=== PATIENT | female | born 1935 | race Caucasian/White ===

== ENCOUNTER 2024-06-28 16:53 | Inpatient (IN) | payer OTHER ==
[2024-06-28] MEDS ORDERED: HYDRALAZINE HCL 20 MG/ML VIAL IV PRN (17:35)
--- NOTE | 2024-06-28 17:54 | P.HP ---
Certification for Inpatient Patient admitted to: Inpatient With expected LOS: >2 Midnights Patient will require the following post-hospital care: Rehabilitation Practitioner: I am a practitioner with admitting privileges, knowledge of patient current condition, hospital course, and medical plan of care. Services: Services provided to patient in accordance with Admission requirements found in Title 42 Section 412.3 of the Code of Federal Regulations Patient History Date of Service: 06/28/24 Primary Care Provider: Vannesa Reason for admission: Acute on chronic CHF History of Present Illness: Patient is a new patient to me. She was being admitted to [facility] assisted living facility. The patient was living in [facility]. She was living in [place] and had no health care other than the local ER. She was admitted to the ER for Pneumonia. She was kept for 2 night. Started on Augmentin and then Amoxicillin. The patient was discharged on 06/19. Her POA was getting her into [facility] and the staff called me stating she is too weak to be managed in [facility]. On history and evaluation. She has chronic lower extremity elephanti tis. She has been sleeping in a [place] for years. She also had a glucose of 276 in the [place] ER. The labs were shown to me by her POA. The patient has no history of chf, dm2. She was put on bp meds in the ER. However she most likely was never followed for the last 2 years. The patient walks about 10-15 feet at a time before her hospitalization. She has weakness and sob after words. She moved from [place] 17 years ago with the passing of her . States she wants to pass and be with her . She has a daughter with health issues living next door. Allergies No Known Allergies Allergy (Unverified 06/28/24 17:47) Home Medications: Amlodipine [Norvasc*] 1 tab PO BID 07/03/18 Losartan/Hydrochlorothiazide [Losartan-Hctz 100-12.5 mg Tab] 1 tab PO DAILY 07/03/18 - Past Medical/Surgical History Diabetic: No -: kidney stones - Social History Alcohol use: No Review of Systems 10-point ROS is otherwise unremarkable Respiratory: Shortness of Breath Cardiovascular: Edema (chronic elephantitis) Physical Examination - Physical Exam General: Alert, In no apparent distress HEENT: Atraumatic, PERRLA, Mucous membr. moist/pink, EOMI, Sclerae nonicteric Neck: Supple, 2+ carotid pulse no bruit, No LAD, Without JVD or thyroid abnormality Respiratory: Clear to auscultation bilaterally, Normal air movement Cardiovascular: Regular rate/rhythm, Normal S1 S2, Abnormal pulses (bounding apical heart beat), Gallops Gastrointestinal: Normal bowel sounds, No tenderness Musculoskeletal: No tenderness Integumentary: No rashes, Other (elephantitis, unkempt nails ) Neurological: Normal gait, Normal speech, Normal strength at 5/5 x4 extr, Normal tone, Normal affect Lymphatics: No axilla or inguinal lymphadenopathy Assessment and Plan - Problems (Diagnosis) (1) Heart failure, unspecified Current Visit: Yes Status: Acute Plan: Patient most likely has hear failure for quite some time. Judging for the elephantitis. will Consult Dr. Clifton. Start her on lasix, metoprolol and entresto. Will order an echocardiogram. See which other evaluation Dr. Clifton would want. Qualifiers: Heart failure type: unspecified Heart failure chronicity: acute on chronic Qualified Code(s): I50.9 - Heart failure, unspecified (2) Essential (primary) hypertension Current Visit: Yes Status: Chronic Plan: she has been on amlodipine and lisinopril in the past it seems. will hold this for the entresto and metoprolol (3) Type 2 diabetes mellitus without complications Current Visit: Yes Status: Chronic Plan: Undiagnoised. Will start her on a sliding scale. order an a1c. Patient seem to have a sweet tooth per her POA. Qualifiers: Diabetes mellitus longwall headgate operator insulin use: without longwall headgate operator use Qualified Code(s): E11.9 - Type 2 diabetes mellitus without complications (4) Lymphedema of both lower extremities Current Visit: No Status: Chronic Plan: Will order vascular studies. consult to Dr. Ballesteros. Have spoken with him. Nothing emergent to be done. However her nails and a chronic well healed ulcer should be evaluated.. Discharge Plan: LTAC Plan to discharge in: Greater than 2 days - Advance Directives Does patient have a Living Will: No Does patient have a Durable POA for Healthcare: No - Code Status/Comfort Care Code Status Assessed: Yes Code Status: Do Not Attempt Resuscitat Physician Review: Patient Assessed, Agree with Above Assessment and Plan Critical Care: No Time Spent Managing Pts Care (In Minutes): 90
--- NOTE | 2024-06-28 19:08 | RAD REPORT ---
Procedure: Chest Single View HISTORY: Shortness of breath COMPARISON: none FINDINGS: Mild bilateral interstitial lung opacities There may be small bilateral pleural effusions Heart is mildly enlarged. Scoliosis. Aorta is tortuous/ectatic. IMPRESSION: These findings probably indicate mild CHF
[2024-06-28 19:26] LABS: Absolute Basophils 0.1 K/uL (0-0.5); Absolute Eosinophils 0.1 K/uL (0-0.5); Absolute Lymphocytes (CBC) 1.5 K/uL (0.7-4.9); Absolute Monocytes 1.4 K/uL (0.1-1.3); Absolute Neutrophil 14.9 K/uL (1.8-8.0); Basophils % 0.6 % (0-1.3); Eosinophils % 0.7 % (0-4.4); Hematocrit 44.1 % (36.0-45.0); Hemoglobin 14.2 g/dL (12.0-15.0); Lymphocytes % 8.1 % (15.3-44.8); MCH 26.9 pg (27.0-35.0); MCHC 32.1 g/dL (32.0-36.0); MCV 83.8 fL (80-100); MPV 7.8 fL (7.6-11.3); Monocytes % 7.9 % (3.3-12.3); Neutrophils % 82.7 % (41.7-73.7); Nucleated Red Blood Cells % 0.1 % (0-0); Platelets 424 thou/uL (152-406); RBC Red Blood Cell Count 5.26 M/uL (3.86-4.86); Red Cell Distribution Width 15.1 % (12.1-15.2)
[2024-06-28 19:39] LABS: AST/SGOT 14 U/L (15-37); Albumin 2.8 g/dL (3.4-5.0); Albumin/Globulin Ratio 0.8 (1.1-1.8); Alkaline Phosphatase 89 U/L (45-117); Anion Gap 9.7 mEq/L (5.0-15.0); BUN Blood Urea Nitrogen 14 mg/dL (7-18); Bicarbonate 30 mEq/L (21-32); Globulin 3.7 g/dL (2.3-3.5); Glomerular Filtration Rate 61 ml/min (=/>90); Glucose Level 105 mg/dL (74-106); NT PRO-BNP 211 pg/mL (<450); Potassium 3.7 mEq/L (3.5-5.1); Protein, Total 6.5 g/dL (6.4-8.2); Sodium Level 139 mEq/L (136-145)
[2024-06-28 19:50] LABS: ALT/SGPT < 14 U/L (13-56)
[2024-06-28] MEDS: METOPROLOL TAR 25 MG TAB PO SCH (20:52)
[2024-06-28] MEDS: FUROSEMIDE 40 MG/4 ML VIAL IV ONE (20:52)
[2024-06-28] MEDS: SACUBITRIL/VALSARTAN 24/26 MG TAB PO SCH (20:52)
[2024-06-28] MEDS: INSULIN REGULAR (HUMAN) 100 UNIT/ML SQ SCH (20:53)
--- NOTE | 2024-06-28 22:05 | RAD REPORT ---
EXAMINATION: US bilateral LOWER EXTREMITY VENOUS DOPPLER CLINICAL INDICATION: Leg pain. Chronic lymphedema TECHNIQUE: Sonographic evaluation of the veins of the lower extremity bilaterally formed.Grayscale, c olor and spectral analysis performed on all vessels COMPARISON: No prior exam. FINDINGS: The common femoral, superficial femoral, greater saphenous, popliteal and posterior tibial veins bila terally are compressible and demonstrate augmentation. Doppler demonstrates good flow. IMPRESSION: No evidence of deep venous thrombosis involving either lower extremity
--- NOTE | 2024-06-28 22:11 | RAD REPORT ---
EXAMINATION:Lower Extremity Arterial Bilat CLINICAL INDICATION: Leg pain. Chronic lymphedema. TECHNIQUE: Arterial duplex ultrasound was performed of the bilateral lower extremity arteries. With r eal-time, color-flow, and spectral wave Doppler evaluation..Grayscale, color and spectral analysis performed on all vessels COMPARISON: No prior exam. FINDINGS: Right common femoral, right superficial femoral, right popliteal, right posterior tibial and right do rsalis pedis arterial waveforms triphasic Left common femoral, left superficial femoral and left popliteal arterial waveforms triphasic. Left posterior tibial and left dorsalis pedis arterial waveforms moderate no and a biphasic. No high-grade stenosis/occlusion IMPRESSION: No significant abnormality arteries right lower extremity . No significant abnormality arteries proximal and mid left lower extremity. Mild disease involving the arteries distally left lower extremity
--- NOTE | 2024-06-28 22:14 | RAD REPORT ---
EXAMINATION:Upper Ext Artery Bilateral CLINICAL INDICATION: Arm pain. Chronic lymphedema TECHNIQUE: Arterial duplex ultrasound was performed of the bilateral upper extremity with real-time, color-flow, and spectral wave Doppler evaluation. COMPARISON: No prior exam. FINDINGS: Common carotid, subclavian, axillary, brachial, ulnar and radial arteries demonstrate phasic waveform s. No high-grade stenosis/occlusion seen IMPRESSION: No significant vascular abnormality displayed
[2024-06-29 01:42] LABS: MA/CREAT RATIO 68.4 (< 30.0); UR MICROALBUMIN 1.3 mg/dL (< 1.9)
[2024-06-29 05:50] LABS: Absolute Basophils 0.2 K/uL (0-0.5); Absolute Eosinophils 0.1 K/uL (0-0.5); Absolute Lymphocytes (CBC) 1.5 K/uL (0.7-4.9); Absolute Monocytes 1.6 K/uL (0.1-1.3); Absolute Neutrophil 13.6 K/uL (1.8-8.0); Basophils % 1.1 % (0-1.3); Eosinophils % 0.8 % (0-4.4); Hematocrit 38.8 % (36.0-45.0); Hemoglobin 12.8 g/dL (12.0-15.0); Lymphocytes % 8.6 % (15.3-44.8); MCH 27.3 pg (27.0-35.0); MPV 7.2 fL (7.6-11.3); Monocytes % 9.2 % (3.3-12.3); Neutrophils % 80.3 % (41.7-73.7); Nucleated Red Blood Cells % 0.1 % (0-0); Platelets 398 thou/uL (152-406); RBC Red Blood Cell Count 4.68 M/uL (3.86-4.86); Red Cell Distribution Width 14.9 % (12.1-15.2)
[2024-06-29 06:21] LABS: Albumin 2.4 g/dL (3.4-5.0); Albumin/Globulin Ratio 0.8 (1.1-1.8); Alkaline Phosphatase 75 U/L (45-117); Anion Gap 6.2 mEq/L (5.0-15.0); BUN Blood Urea Nitrogen 13 mg/dL (7-18); Bicarbonate 32 mEq/L (21-32); Bilirubin Total 0.8 mg/dL (0.2-1.0); Globulin 3.1 g/dL (2.3-3.5); Glomerular Filtration Rate 72 ml/min (=/>90); Glucose Level 103 mg/dL (74-106); Potassium 3.2 mEq/L (3.5-5.1); Protein, Total 5.5 g/dL (6.4-8.2); Sodium Level 140 mEq/L (136-145)
[2024-06-29 06:42] LABS: ALT/SGPT < 14 U/L (13-56); AST/SGOT < 10 U/L (15-37)
[2024-06-29] MEDS: PANTOPRAZOLE 40MG TABLET PO SCH (07:30)
[2024-06-29] MEDS: POTASSIUM 25 MEQ EFFERV TAB PO ONE (08:46)
--- NOTE | 2024-06-29 12:04 | P.PN ---
Subjective Date of Service: 06/29/24 Primary Care Provider: Vannesa Chief Complaint: Acute on chronic CHF Subjective: Improving Review of Systems 10-point ROS is otherwise unremarkable Cardiovascular: Edema Physical Examination - Vital Signs Temperature: 98.6 F Blood Pressure: 117/57 Pulse: 86 Respirations: 14 Pulse Ox (%): 97 - Physical Exam General: Alert, In no apparent distress HEENT: Atraumatic, PERRLA, EOMI Neck: Supple, JVD not distended Respiratory: Clear to auscultation bilaterally, Normal air movement Cardiovascular: Regular rate/rhythm, Normal S1 S2, Edema (chronic lymphadema ) Gastrointestinal: Normal bowel sounds, No tenderness Musculoskeletal: No tenderness Integumentary: No rashes Neurological: Normal speech, Normal tone, Normal affect Lymphatics: No axilla or inguinal lymphadenopathy - Studies Laboratory Data (last 24 hrs) 06/29/24 06/29/24 06/29/24 05:29 05:29 05:29 WBC 16.90 H Hgb 12.8 D Hct 38.8 Plt Count 398 Sodium 140 Potassium 3.2 L D BUN 13 Creatinine 0.79 Glucose 103 Magnesium 2.0 Total Bilirubin 0.8 AST < 10 L ALT < 14 Alkaline Phosphatase 75 Triglycerides 130 Cholesterol 138 HDL Cholesterol 42 Cholesterol/HDL Ratio 3.29 06/28/24 06/28/24 18:40 18:40 WBC 18.00 H Hgb 14.2 Hct 44.1 Plt Count 424 H Sodium 139 Potassium 3.7 BUN 14 Creatinine 0.91 Glucose 105 Magnesium Total Bilirubin 1.0 AST 14 L ALT < 14 Alkaline Phosphatase 89 Triglycerides Cholesterol HDL Cholesterol Cholesterol/HDL Ratio Assessment And Plan - Current Problems (Diagnosis) (1) Heart failure, unspecified Current Visit: Yes Status: Acute Plan: Patient most likely has hear failure for quite some time. Judging for the marianne witt. will Consult Dr. Clifton. Start her on lasix, metoprolol and entresto. Will order an echocardiogram. See which other evaluation Dr. Clifton would want. 06/29 Has better bp this morning. The patient had bradycardia. d/c the metoprolol. will await Dr Clifton Qualifiers: Heart failure type: unspecified Heart failure chronicity: acute on chronic Qualified Code(s): I50.9 - Heart failure, unspecified (2) Essential (primary) hypertension Current Visit: Yes Status: Chronic Plan: she has been on amlodipine and lisinopril in the past it seems. will hold this for the entresto and metoprolol (3) Type 2 diabetes mellitus without complications Current Visit: Yes Status: Ruled-out Plan: Undiagnoised. Will start her on a sliding scale. order an a1c. Patient seem to have a sweet tooth per her POA. 12/7 a1c is 5.8. previous glucose of 276 was most likely an acute phase reaction. This was in her [place] stay with pneumonia. Qualifiers: Diabetes mellitus oysterman insulin use: without group home use Qualified Code(s): E11.9 - Type 2 diabetes mellitus without complications (4) Lymphedema of both lower extremities Current Visit: No Status: Chronic Plan: Will order vascular studies. consult to Dr. Ballesteros. Have spoken with him. Nothing emergent to be done. However her nails and a chronic well healed ulcer should be evaluated.. Discharge Plan: LTAC Plan to discharge in: Greater than 2 days - Code Status/Comfort Care Code Status Assessed: No Physician Review: Patient Assessed, Agree with Above Assessment and Plan Critical Care: No Time Spent Managing PTS Care (In Minutes): 40
[2024-06-29 16:58] VITALS: BMI 27.2
[2024-06-29] MEDS: ENOXAPARIN 30 MG/0.3 ML SQ SCH (17:03)
[2024-06-29] MEDS: Mupirocin NASAL 2 APPL/1 GM TUBE NAS SCH (21:55)
[2024-06-30 06:30] LABS: Absolute Eosinophils 0.2 K/uL (0-0.5); Absolute Lymphocytes (CBC) 1.3 K/uL (0.7-4.9); Absolute Monocytes 1.2 K/uL (0.1-1.3); Absolute Neutrophil 12.3 K/uL (1.8-8.0); Basophils % 0.3 % (0-1.3); Eosinophils % 1.2 % (0-4.4); Hematocrit 39.9 % (36.0-45.0); Hemoglobin 12.9 g/dL (12.0-15.0); MCHC 32.4 g/dL (32.0-36.0); MCV 83.4 fL (80-100); MPV 7.1 fL (7.6-11.3); Monocytes % 7.7 % (3.3-12.3); Neutrophils % 81.8 % (41.7-73.7); Platelets 388 thou/uL (152-406); RBC Red Blood Cell Count 4.79 M/uL (3.86-4.86); Red Cell Distribution Width 15.3 % (12.1-15.2)
[2024-06-30 06:50] LABS: Albumin 2.6 g/dL (3.4-5.0); Albumin/Globulin Ratio 0.8 (1.1-1.8); Alkaline Phosphatase 84 U/L (45-117); Anion Gap 5.4 mEq/L (5.0-15.0); BUN Blood Urea Nitrogen 18 mg/dL (7-18); Bicarbonate 33 mEq/L (21-32); Bilirubin Total 0.5 mg/dL (0.2-1.0); Globulin 3.3 g/dL (2.3-3.5); Glomerular Filtration Rate 59 ml/min (=/>90); Glucose Level 117 mg/dL (74-106); Potassium 3.4 mEq/L (3.5-5.1); Protein, Total 5.9 g/dL (6.4-8.2); Sodium Level 141 mEq/L (136-145)
[2024-06-30 06:51] LABS: ALT/SGPT < 14 U/L (13-56); AST/SGOT < 10 U/L (15-37)
[2024-06-30 07:49] LABS: Atypical Lymphocytes 2 %; Band Neutrophils 2 % (0-1); Differential Total Cells Count 100; Lymphocytes 8 % (15-42); Monocytes 5 % (0-10); Segmented Neutrophils 82 % (40-80)
[2024-06-30 07:50] LABS: Blood Morphology Comment NOT SEEN (NOT SEEN); Platelet Estimate ADEQ; Platelets, Giant NOTED; Smudge Cells NOTED
--- NOTE | 2024-06-30 13:16 | P.PN ---
Subjective Date of Service: 06/30/24 Primary Care Provider: Vannesa Chief Complaint: Acute on chronic CHF Subjective: No new changes Review of Systems 10-point ROS is otherwise unremarkable General: Weakness (has tried putting one foot on the floor) Physical Examination - Vital Signs Temperature: 98.5 F Blood Pressure: 140/61 Pulse: 72 Respirations: 16 Pulse Ox (%): 97 - Physical Exam General: Alert, In no apparent distress HEENT: Atraumatic, PERRLA, EOMI Neck: Supple, JVD not distended Respiratory: Clear to auscultation bilaterally, Normal air movement Cardiovascular: Regular rate/rhythm, Normal S1 S2 Gastrointestinal: Normal bowel sounds, No tenderness Musculoskeletal: No tenderness Integumentary: No rashes Neurological: Normal speech, Normal tone, Normal affect Lymphatics: No axilla or inguinal lymphadenopathy - Studies Laboratory Data (last 24 hrs) 06/30/24 06/30/24 06/30/24 06:20 06:20 05:00 WBC 15.00 H Hgb 12.9 Hct 39.9 Plt Count 388 Sodium 141 Cancelled Potassium 3.4 L D Cancelled BUN 18 Cancelled Creatinine 0.94 Cancelled Glucose 117 H Cancelled Total Bilirubin 0.5 AST < 10 L ALT < 14 Alkaline Phosphatase 84 06/29/24 19:20 WBC Hgb Hct Plt Count Sodium Potassium 4.0 D BUN Creatinine Glucose Total Bilirubin AST ALT Alkaline Phosphatase Assessment And Plan - Current Problems (Diagnosis) (1) Heart failure, unspecified Current Visit: Yes Status: Acute Plan: Patient most likely has hear failure for quite some time. Judging for the elephantitis. will Consult Dr. Clifton. Start her on lasix, metoprolol and entresto. Will order an echocardiogram. See which other evaluation Dr. Clifton would want. 06/29 Has better bp this morning. The patient had bradycardia. d/c the metoprolol. will await Dr Clifton Qualifiers: Heart failure type: unspecified Heart failure chronicity: acute on chronic Qualified Code(s): I50.9 - Heart failure, unspecified (2) Essential (primary) hypertension Current Visit: Yes Status: Chronic Plan: she has been on amlodipine and lisinopril in the past it seems. will hold this for the entresto and metoprolol (3) Type 2 diabetes mellitus without complications Current Visit: Yes Status: Ruled-out Plan: Undiagnoised. Will start her on a sliding scale. order an a1c. Patient seem to have a sweet tooth per her POA. 12 a1c is 5.8. previous glucose of 276 was most likely an acute phase reaction. This was in her [place] stay with pneumonia. Qualifiers: Diabetes mellitus fpc insulin use: without exterminator helper use Qualified Code(s): E11.9 - Type 2 diabetes mellitus without complications (4) Lymphedema of both lower extremities Current Visit: No Status: Chronic Plan: Will order vascular studies. consult to Dr. Ballesteros. Have spoken with him. Nothing emergent to be done. However her nails and a chronic well healed ulcer should be evaluated.. Discharge Plan: LTAC Plan to discharge in: 48 Hours - Code Status/Comfort Care Code Status Assessed: No Physician Review: Patient Assessed, Agree with Above Assessment and Plan Critical Care: No Time Spent Managing PTS Care (In Minutes): 20
[2024-06-30] MEDS: POTASSIUM CL SA 10 MEQ TAB PO ONE (21:11)
[2024-07-01 04:43] LABS: Absolute Eosinophils 0.2 K/uL (0-0.5); Absolute Lymphocytes (CBC) 1.2 K/uL (0.7-4.9); Absolute Neutrophil 10.7 K/uL (1.8-8.0); Basophils % 0.3 % (0-1.3); Eosinophils % 1.9 % (0-4.4); Hematocrit 38.8 % (36.0-45.0); Hemoglobin 12.5 g/dL (12.0-15.0); Lymphocytes % 9.1 % (15.3-44.8); MCH 27.1 pg (27.0-35.0); MCHC 32.3 g/dL (32.0-36.0); MCV 83.8 fL (80-100); MPV 7.4 fL (7.6-11.3); Monocytes % 7.6 % (3.3-12.3); Neutrophils % 81.1 % (41.7-73.7); Platelets 350 thou/uL (152-406); RBC Red Blood Cell Count 4.63 M/uL (3.86-4.86); Red Cell Distribution Width 15.5 % (12.1-15.2)
[2024-07-01 04:58] LABS: Albumin 2.3 g/dL (3.4-5.0); Albumin/Globulin Ratio 0.7 (1.1-1.8); Alkaline Phosphatase 74 U/L (45-117); Anion Gap 5.3 mEq/L (5.0-15.0); BUN Blood Urea Nitrogen 17 mg/dL (7-18); Bicarbonate 32 mEq/L (21-32); Bilirubin Total 0.5 mg/dL (0.2-1.0); Globulin 3.2 g/dL (2.3-3.5); Glomerular Filtration Rate 69 ml/min (=/>90); Glucose Level 132 mg/dL (74-106); Potassium 4.3 mEq/L (3.5-5.1); Protein, Total 5.5 g/dL (6.4-8.2); Sodium Level 142 mEq/L (136-145)
[2024-07-01 05:01] LABS: ALT/SGPT < 14 U/L (13-56); AST/SGOT < 10 U/L (15-37)
--- OUTSIDE RECORDS SUMMARY | 2024-07-01 08:19 | XMS REPORT | Continuity of Care Document ---
Author Name Unknown Address [address] [place] [address] [facility] thconnect Address [address] [place] [address] Care Team Providers Care Medical Coordinator Pesticide Use Name Role Phone DANIELLE FREGOSO Primary Care Physician UnavailDANIELLE Flores Attending Clinician Unavailable Antonino NUÑEZ, Danielle Attending Clinician [phone] Yeimi Millan RN Attending Clinician Unava ilable Doctor Unassigned, [place] Attending Clinician U Daniel Cho DO Attending Clinician [phone] Dre Crespo MD Attending Clinician [phone] Taran NUÑEZ, Zulema Maciel Attending Clinician + [phone] James Avila MD Attending Clinician [phone] Wander Spears MD Attending Clinician [phone] Taran NUÑEZ, Zulema Maciel Admitting Clinician [phone] Payers Payer Name Policy Type Policy Number Effective Date Expirati on Date Source [employer] MED[employer]ARE ADV HMO [id number] 2016 00:00:00 Problems Condition Name Condition Details Condition Category Status Onset Date Resolution Date Last Treatment Date Treating Clinician Comments Source Syncope and collapse Syncope and collapse Disease Active 2-10 00:00: 00 [facility] Mobility impaired Mobility impaired Disease Active 2018-07 0-09 00:00: 00 [facility] Essential hypertensi on Essential hypertensi on Disease Active 2014-07 00:00: 00 [facility] 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 Disease Active 2014-07 00:00: 00 [facility] Allergies, Adverse Reactions, Alerts Allergy Name Allergy Type Status Severity Reaction(s) Onset Date Inactive Date Treating Clinician Comments Source AMOXICIL TERRANCE-POT CLAVULAN ATE DRUG Active Unknown-Cmnt 2014-07 00:00: 00 [facility] HYDROCOD ONE-GUAI FENESIN DRUG Active Unknown-Cmnt 2014-07 00:00: 00 [facility] Amoxicil terrance-Pot Clavulan ate Propensi ty to adverse reaction s Active Unknown - See comments 2014-07 00:00: 00 [facility] Hydrocod one-Guai fenesin Propensi ty to adverse reaction s Active Unknown - See comments 2014-07 00:00: 00 [facility] Social History Social Habit Start Date Stop Date Quantity Comments Source Exposure to SARS-CoV-2 (event) Not sure [facility] Alcohol intake 2020-09-03 00:00:00 2020-09-03 00:00:00 Current non-drinker of alcohol (finding) [facility] Sex Assigned At 1935 00:00:00 1935 00:00:00 [facility] Smoking Status Start Date Stop Date Source Never smoker [facility] Medications Ordered Medication Name Filled Medication Name Start Date Stop Date Current Medication? Ordering Clinician Indication Dosage Frequency Signature (SIG) Comments Components Source losartan 100 mg tablet 2019-07 00:00: 00 07-14 00:00 :00 No 100mg Take 100 mg by mouth daily. [facility] amLODIPine 5 mg tablet 2019-07 00:00: 00 07-14 00:00 :00 No 5mg Take 5 mg by mouth 2 (two) times daily. [facility] azelastine 137 mcg (0.1 %) nasal spray 2018-07 00:00: 00 Yes [id number] 1{spray } Use 1 [place] in each nostril 2 (two) times daily. Use in each nostril as directed [facility] fluticasone propion-ruth ann meterol (ADVAIR DISKUS) 250-50 mcg/dose inhalation disk 2018-07 00:00: 00 Yes [id number] 1{puff} Inhale 1 Puff every 12 (twelve) hours. [facility] Vital Signs Vital Name Observation Time Observation Value Comments [facility] Systolic blood pressure 2021-07-14 18:22:00 137 mm[Hg] [facility] Diastolic blood pressure 2021-07-14 18:22:00 82 mm[Hg] [facility] Heart rate 2021-07-14 18:13:00 109 /min [facility] Body weight 2021-07-14 18:13:00 82.101 kg [facility] BMI 2021-07-14 18:13:00 27.52 kg/m2 [facility] Oxygen saturation in Arterial blood by Pulse oximetry 2021-07-14 18:13:00 95 /min [facility] Encounters Start Date/Time End Date/Time Encounter Type Admission Type Attending Clinicians Care Facility Care Department Encounter ID Source 2021-05-22 22:57:15 Emergency [facility] [id number] [facility] 2021-07-14 12:30:00 2021-07-14 12:45:00 Office Visit Danielle Fregoso [facility] [id number] [facility] 2021-07-14 12:30:00 2021-07-14 12:30:00 Outpatient DANIELLE RBEWER [facility] [id number] [facility] 2021-07-14 12:30:00 2021-07-14 12:30:00 Outpatient DANIELLE BREWER [facility] [id number] [facility] 2021-07-12 10:40:00 2021-07-12 10:40:00 Outpatient R [facility] [id number] [facility] 2021-07-09 00:00:00 2021-07-09 00:00:00 [facility] [id number] [facility] 2021-05-19 00:00:00 2021-05-19 00:00:00 Telephone YanaYeimi [facility] 1..114 [id number] [facility] 2020-09-17 00:00:00 2020-09-17 00:00:00 Orders Only Doctor Unassigned, [place] [facility] 1..114 [id number] [facility] 2020-09-15 08:25:30 2020-09-15 08:56:22 [facility] 1..114 [id number] [facility] 2020-09-15 08:30:00 2020-09-15 08:30:00 Outpatient R FREGOSODANIELLE [facility] [id number] [facility] 2020-09-02 18:20:00 2020-09-04 21:43:00 Hospital Encounter Daniel Conklin, Dre Chirinos, Zulema Avila, [facility].114 [id number] [facility] 2020-04-07 07:45:00 2020-04-07 07:45:00 Outpatient R DANIELLE FREGOSO [facility] [id number] [facility] 2020-04-07 06:49:01 2020-04-07 07:04:01 Telemedici ne Visit Danielle Fregoso [facility] Office [facility] [id number] [facility]
[2024-07-01] MEDS: FUROSEMIDE 40 MG/4 ML VIAL IV SCH (09:42)
--- NOTE | 2024-07-01 12:43 | P.PN ---
Subjective Date of Service: 07/01/24 Primary Care Provider: Vannesa Chief Complaint: Acute on chronic CHF Subjective: No new changes Review of Systems 10-point ROS is otherwise unremarkable General: Weakness (Patient is able to move her feet much better today) Physical Examination - Vital Signs Temperature: 98.6 F Blood Pressure: 142/67 Pulse: 100 Respirations: 16 Pulse Ox (%): 98 - Physical Exam General: Alert, In no apparent distress HEENT: Atraumatic, PERRLA, EOMI Neck: Supple, JVD not distended Respiratory: Clear to auscultation bilaterally, Normal air movement Cardiovascular: Regular rate/rhythm, Normal S1 S2, Edema (1+ improved) Gastrointestinal: Normal bowel sounds, No tenderness Musculoskeletal: No tenderness Integumentary: No rashes Neurological: Normal speech, Normal tone, Normal affect Lymphatics: No axilla or inguinal lymphadenopathy - Studies Laboratory Data (last 24 hrs) 07/01/24 07/01/24 06/30/24 04:20 04:20 19:45 WBC 13.10 H Hgb 12.5 Hct 38.8 Plt Count 350 Sodium 142 Potassium 4.3 D 3.7 BUN 17 Creatinine 0.82 Glucose 132 H Total Bilirubin 0.5 AST < 10 L ALT < 14 Alkaline Phosphatase 74 Assessment And Plan - Current Problems (Diagnosis) (1) Heart failure, unspecified Current Visit: Yes Status: Acute Plan: Patient most likely has hear failure for quite some time. Judging for the elephantitis. will Consult Dr. Clifton. Start her on lasix, metoprolol and entresto. Will order an echocardiogram. See which other evaluation Dr. Clifton would want. 07/01 had an echo this morning. Discussed the patient with Dr. Hansen Qualifiers: Heart failure type: unspecified Heart failure chronicity: acute on chronic Qualified Code(s): I50.9 - Heart failure, unspecified (2) Essential (primary) hypertension Current Visit: Yes Status: Chronic Plan: she has been on amlodipine and lisinopril in the past it seems. will hold this for the entresto and metoprolol (3) Type 2 diabetes mellitus without complications Current Visit: Yes Status: Ruled-out Plan: Undiagnoised. Will start her on a sliding scale. order an a1c. Patient seem to have a sweet tooth per her POA. 06/29 a1c is 5.8. previous glucose of 276 was most likely an acute phase reaction. This was in her [place] stay with pneumonia. Qualifiers: Diabetes mellitus track coach insulin use: without track coach use Qualified Code(s): E11.9 - Type 2 diabetes mellitus without complications (4) Lymphedema of both lower extremities Current Visit: No Status: Chronic Plan: Will order vascular studies. consult to Dr. Ballesteros. Have spoken with him. Nothing emergent to be done. However her nails and a chronic well healed ulcer should be evaluated.. (5) Hyperglycemia Current Visit: Yes Status: Chronic Plan: not in diabetic range. May consider nutritional councilling Discharge Plan: LTAC Plan to discharge in: 24 Hours - Code Status/Comfort Care Code Status Assessed: No Physician Review: Patient Assessed, Agree with Above Assessment and Plan Critical Care: No Time Spent Managing PTS Care (In Minutes): 20
--- NOTE | 2024-07-01 14:13 | P.CNS ---
Date of Consult: 07/01/24 Primary Care Provider: Vannesa Chief Complaint: Acute on chronic CHF History of Present Illness: Patient was admitted to the hospital for SOB and significant bilateral lower extremities swelling, denies chest pain, no palpitations, no syncope. Allergies No Known Allergies Allergy (Unverified 06/28/24 17:47) Home medications list reviewed: Yes Home Medications: Amlodipine [Norvasc*] 1 tab PO BID 07/03/18 Losartan/Hydrochlorothiazide [Losartan-Hctz 100-12.5 mg Tab] 1 tab PO DAILY 07/03/18 - Past Medical/Surgical History Diabetic: No -: HTN -: DM -: CHF -: kidney stones - Social History Alcohol use: No CD- Drugs: No Caffeine use: No Place of Residence: Home Review of Systems 10-point ROS is otherwise unremarkable Physical Examination Temp Pulse Resp BP Pulse Ox 98.6 F 100 H 16 142/67 H 98 07/01/24 12:43 07/01/24 12:43 07/01/24 12:43 07/01/24 12:43 07/01/24 12:43 General: Alert, In no apparent distress HEENT: Atraumatic, PERRLA, Mucous membr. moist/pink, EOMI, Sclerae nonicteric Neck: Supple, 2+ carotid pulse no bruit, No LAD, Without JVD or thyroid abnormality Respiratory: Clear to auscultation bilaterally, Normal air movement Cardiovascular: Regular rate/rhythm, Normal S1 S2, Edema Gastrointestinal: Normal bowel sounds, No tenderness Musculoskeletal: No tenderness Integumentary: No rashes Neurological: Normal gait, Normal speech, Normal tone, Normal affect Lymphatics: No axilla or inguinal lymphadenopathy Laboratory Data (last 24 hrs) 07/01/24 07/01/24 06/30/24 04:20 04:20 19:45 WBC 13.10 H Hgb 12.5 Hct 38.8 Plt Count 350 Sodium 142 Potassium 4.3 D 3.7 BUN 17 Creatinine 0.82 Glucose 132 H Total Bilirubin 0.5 AST < 10 L ALT < 14 Alkaline Phosphatase 74 - Problems (1) Heart failure, unspecified Current Visit: Yes Status: Acute Plan: continue IV lasix 40 mg daily continue to monitor input and output consider adding Spironlactone 25 mg daily consider starting Coreg 3.125 mg po BID. will follow up on echo. Qualifiers: Heart failure type: unspecified Heart failure chronicity: acute on chronic Qualified Code(s): I50.9 - Heart failure, unspecified
--- NOTE | 2024-07-01 14:44 | ECHO ---
HEIGHT: 5 ft 8 in WEIGHT: 179 lb 0 oz DATE OF STUDY: 07/01/[address]: Romie Granado MD 2-DIMENSIONAL: YES M.MODE: YES DOPPLER: YES COLOR FLOW: YES TDS: YES PORTABLE: YES DEFINITY: NO BUBBLE STUDY: NO DIAGNOSIS: CONGESTIVE HEART FAILURE CARDIAC HISTORY: CATHERIZATION: SURGERY: PROSTHETIC VALVE: PACEMAKER: MEASUREMENTS (cm) DIASTOLIC (NORMALS) SYSTOLIC (NORMALS) IVSd 1.0 (0.6-1.2) LA Diam 3.9 (1.9-4.0) LVEF 65% LVIDd 3.3 (3.5-5.7) LVIDs 1.9 (2.0-3.5) %FS 43% LVPWd 1.1 (0.6-1.2) Ao Diam 2.6 (2.0-3.7) 2 DIMENSIONAL ASSESSMENT: RIGHT ATRIUM: NORMAL LEFT ATRIUM: MILDLY DILATED RIGHT VENTRICLE: NORMAL LEFT VENTRICLE: NORMAL TRICUSPID VALVE: TRACE OF TRICUSPID REGURGITATION MITRAL VALVE: NORMAL PULMONIC VALVE: NORMAL AORTIC VALVE: NORMAL PERICARDIAL EFFUSION: NONE AORTIC ROOT: NORMAL LEFT VENTRICULAR WALL MOTION: NORMAL. DOPPLER/COLOR FLOW: GRADE I DIASTOLIC DYSFUNCTION. COMMENTS: 1. NORMAL LEFT VENTRICULAR SYSTOLIC FUNCTION, EJECTION FRACTION 65%, NORMAL WALL MOTION. 2. GRADE IF DIASTOLIC DYSFUNCTION. 3. NORMAL FILLING PRESSURE. TECHNOLOGIST: COLBY GAONA
[2024-07-01] MEDS: ENOXAPARIN 40 MG/0.4 ML SQ SCH (17:40)
--- NOTE | 2024-07-02 09:29 | P.PN ---
Subjective Date of Service: 07/02/24 Primary Care Provider: Vannesa Chief Complaint: Acute on chronic CHF Subjective: Improving (walked 40 feet with physical therapy yesterday) Review of Systems 10-point ROS is otherwise unremarkable General: Other (anxiety per Physical therapist ) Physical Examination - Vital Signs Temperature: 97.6 F Blood Pressure: 120/57 Pulse: 69 Respirations: 18 Pulse Ox (%): 94 - Physical Exam General: Alert, In no apparent distress HEENT: Atraumatic, PERRLA, EOMI Neck: Supple, JVD not distended Respiratory: Clear to auscultation bilaterally, Normal air movement Cardiovascular: Regular rate/rhythm, Normal S1 S2 Gastrointestinal: Normal bowel sounds, No tenderness Musculoskeletal: No tenderness Integumentary: No rashes Neurological: Normal speech, Normal tone, Normal affect Lymphatics: No axilla or inguinal lymphadenopathy, Other (elephantitis) Assessment And Plan - Current Problems (Diagnosis) (1) Heart failure, unspecified Current Visit: Yes Status: Acute Plan: Patient most likely has hear failure for quite some time. Judging for the elephantitis. will Consult Dr. Clifton. Start her on lasix, metoprolol and entresto. Will order an echocardiogram. See which other evaluation Dr. Clifton would want. 07/02 HFePP. will need a sleep study at some point. this is most likely diastolic dysfunction. discussed with Dr. Hansen. He would like spirnolactone and carvedilol. However she has had such deconditioning and hypotension/bradycardia. I believe these meds should be added slowly as she gains strength with PT. She seems to deconditioned to generate a good blood pressure. As per her dizziness when she stands. Qualifiers: Heart failure type: diastolic Heart failure chronicity: acute on chronic Qualified Code(s): I50.33 - Acute on chronic diastolic (congestive) heart failure (2) Essential (primary) hypertension Current Visit: Yes Status: Chronic Plan: she has been on amlodipine and lisinopril in the past it seems. will hold this for the entresto and metoprolol (3) Type 2 diabetes mellitus without complications Current Visit: Yes Status: Ruled-out Plan: Undiagnoised. Will start her on a sliding scale. order an a1c. Patient seem to have a sweet tooth per her POA. 06/29 a1c is 5.8. previous glucose of 276 was most likely an acute phase reaction. This was in her [place] stay with pneumonia. Qualifiers: Diabetes mellitus [facility] insulin use: without [facility] use Qualified Code(s): E11.9 - Type 2 diabetes mellitus without complications (4) Lymphedema of both lower extremities Current Visit: No Status: Chronic Plan: Will order vascular studies. consult to Dr. Ballesteros. Have spoken with him. Nothing emergent to be done. However her nails and a chronic well healed ulcer should be evaluated.. (5) Hyperglycemia Current Visit: Yes Status: Chronic Plan: not in diabetic range. May consider nutritional councilling (6) Depression Current Visit: Yes Status: Chronic Plan: will start the patient on escitalopram. She has been stating she has this scince the passing of her 17 years ago. She also has anxiety with PT. hence the choice of escitalopram Qualifiers: Depression Type: persistent depressive disorder Qualified Code(s): F34.1 - Dysthymic disorder Discharge Plan: LTAC Plan to discharge in: 24 Hours - Code Status/Comfort Care Code Status Assessed: No Code Status: Full Code Physician Review: Patient Assessed, Agree with Above Assessment and Plan Critical Care: No Time Spent Managing PTS Care (In Minutes): 20
--- NOTE | 2024-07-02 10:03 | P.PN ---
Subjective Date of Service: 07/02/24 Primary Care Provider: Vannesa Chief Complaint: Acute on chronic CHF Subjective: No new changes, No C/O voiced, Tolerating diet, Ambulating, Improving Review of Systems 10-point ROS is otherwise unremarkable Physical Examination - Vital Signs Temperature: 97.6 F Blood Pressure: 120/57 Pulse: 69 Respirations: 18 Pulse Ox (%): 94 - Physical Exam General: Alert, In no apparent distress HEENT: Atraumatic, PERRLA, EOMI Neck: Supple, JVD not distended Respiratory: Clear to auscultation bilaterally, Normal air movement Cardiovascular: Regular rate/rhythm, Normal S1 S2, Edema Gastrointestinal: Normal bowel sounds, No tenderness Musculoskeletal: No tenderness Integumentary: No rashes Neurological: Normal speech, Normal tone, Normal affect Lymphatics: No axilla or inguinal lymphadenopathy - Studies Medications List Reviewed: Yes Assessment And Plan - Current Problems (Diagnosis) (1) Heart failure, unspecified Current Visit: Yes Status: Acute Plan: switch lasix to 40 mg po daily continue to monitor input and output consider adding Spironlactone 25 mg daily consider starting Coreg 3.125 mg po BID. continue Entresto Echo shows grade 1 DD, normal EF. Qualifiers: Heart failure type: diastolic Heart failure chronicity: acute on chronic Qualified Code(s): I50.33 - Acute on chronic diastolic (congestive) heart failure Physician Review: Patient Assessed, Agree with Above Assessment and Plan
--- NOTE | 2024-07-02 12:38 | P.CNS ---
Date of Consult: 07/01/24 Reason for Consult: Painful toenails Primary Care Provider: Vannesa Chief Complaint: Acute on chronic CHF Allergies No Known Allergies Allergy (Unverified 06/28/24 17:47) Home Medications: Amlodipine [Norvasc*] 1 tab PO BID 07/03/18 Losartan/Hydrochlorothiazide [Losartan-Hctz 100-12.5 mg Tab] 1 tab PO DAILY 07/03/18 - Past Medical/Surgical History Diabetic: No -: HTN -: DM -: CHF -: kidney stones - Social History Alcohol use: No CD- Drugs: No Caffeine use: No Place of Residence: Home Review of Systems 10-point ROS is otherwise unremarkable Physical Examination Temp Pulse Resp BP Pulse Ox 97.6 F 69 18 120/57 L 94 07/02/24 10:03 07/02/24 10:03 07/02/24 10:03 07/02/24 10:03 07/02/24 10:03 General: Alert, In no apparent distress, Oriented x3 Cardiovascular: Abnormal pulses (nonpalpable pedal pulses bilateral lower extremities) Capillary refill: >2 Seconds Musculoskeletal: No clubbing, No swelling, No contractures, No erythema, No tenderness, No warmth Integumentary: No breakdown, Other (Thickened, hypertrophic nails with subungual debris x 10, reduced edema noted bilateral) Neurological: Sensation intact - Problems (1) Tinea unguium Current Visit: Yes Status: Acute (2) Type 2 diabetes mellitus without complications Current Visit: Yes Status: Ruled-out Qualifiers: Diabetes mellitus [employer] insulin use: without alf use Qualified Code(s): E11.9 - Type 2 diabetes mellitus without complications (3) Lymphedema of both lower extremities Current Visit: No Status: Chronic Conclusions/Impression: Mechanical debridment of nails at bedside Recommend continued lymphedema therapy Physician Review: Patient Assessed, Agree with Above Assessment and Plan
--- NOTE | 2024-07-03 09:17 | P.PN ---
Subjective Date of Service: 07/03/24 Primary Care Provider: Vannesa Chief Complaint: Acute on chronic CHF Subjective: Improving Review of Systems 10-point ROS is otherwise unremarkable Physical Examination - Vital Signs Temperature: 97.8 F Blood Pressure: 123/55 Pulse: 86 Respirations: 16 Pulse Ox (%): 96 - Physical Exam General: Alert, In no apparent distress HEENT: Atraumatic, PERRLA, EOMI Neck: Supple, JVD not distended Respiratory: Clear to auscultation bilaterally, Normal air movement Cardiovascular: Regular rate/rhythm, Normal S1 S2 Gastrointestinal: Normal bowel sounds, No tenderness Musculoskeletal: No tenderness Integumentary: No rashes Neurological: Normal speech, Normal tone, Normal affect Lymphatics: No axilla or inguinal lymphadenopathy - Studies Medications List Reviewed: Yes Assessment And Plan - Current Problems (Diagnosis) (1) Heart failure, unspecified Current Visit: Yes Status: Acute Plan: Patient most likely has hear failure for quite some time. Judging for the elephantitis. will Consult Dr. Clifton. Start her on lasix, metoprolol and entresto. Will order an echocardiogram. See which other evaluation Dr. Clifton would want. 07/02 HFePP. will need a sleep study at some point. this is most likely diastolic dysfunction. discussed with Dr. Hansen. He would like spirnolactone and carvedilol. However she has had such deconditioning and hypotension/bradycardia. I believe these meds should be added slowly as she gains strength with PT. She seems to deconditioned to generate a good blood pressure. As per her dizziness when she stands. Qualifiers: Heart failure type: diastolic Heart failure chronicity: acute on chronic Qualified Code(s): I50.33 - Acute on chronic diastolic (congestive) heart failure (2) Essential (primary) hypertension Current Visit: Yes Status: Chronic Plan: she has been on amlodipine and lisinopril in the past it seems. will hold this for the entresto and metoprolol 07/03 improving steadily. she can be safely discharged when a PT bed avalible. Will d/c the [place] in anticpation of this (3) Type 2 diabetes mellitus without complications Current Visit: Yes Status: Ruled-out Plan: Undiagnoised. Will start her on a sliding scale. order an a1c. Patient seem to have a sweet tooth per her POA. 06/29 a1c is 5.8. previous glucose of 276 was most likely an acute phase reaction. This was in her [place] stay with pneumonia. Qualifiers: Diabetes mellitus [employer] insulin use: without shelter use Qualified Code(s): E11.9 - Type 2 diabetes mellitus without complications (4) Lymphedema of both lower extremities Current Visit: No Status: Chronic Plan: Will order vascular studies. consult to Dr. Ballesteros. Have spoken with him. Nothing emergent to be done. However her nails and a chronic well healed ulcer should be evaluated.. (5) Hyperglycemia Current Visit: Yes Status: Chronic Plan: not in diabetic range. May consider nutritional councilling (6) Depression Current Visit: Yes Status: Chronic Plan: will start the patient on escitalopram. She has been stating she has this scince the passing of her 17 years ago. She also has anxiety with PT. hence the choice of escitalopram Qualifiers: Depression Type: persistent depressive disorder Qualified Code(s): F34.1 - Dysthymic disorder Discharge Plan: LTAC Plan to discharge in: 24 Hours - Code Status/Comfort Care Code Status Assessed: No Physician Review: Patient Assessed, Agree with Above Assessment and Plan Critical Care: No Time Spent Managing PTS Care (In Minutes): 20
[2024-07-03] MEDS: ESCITALOPRAM 20 MG TAB PO SCH (10:10)
--- NOTE | 2024-07-03 10:52 | P.DS ---
Admission Date: 06/28/24 Discharge Date: 07/03/24 Primary Care Provider: Vannesa Disposition: TRANSFER TO INPATIENT REHAB Discharge Condition: GOOD Reason for Admission: Acute on chronic CHF - Problems (1) Heart failure, unspecified Current Visit: Yes Status: Acute Qualifiers: Heart failure type: diastolic Heart failure chronicity: acute on chronic Qualified Code(s): I50.33 - Acute on chronic diastolic (congestive) heart failure (2) Essential (primary) hypertension Current Visit: Yes Status: Chronic (3) Type 2 diabetes mellitus without complications Current Visit: Yes Status: Ruled-out Qualifiers: Diabetes mellitus long-term insulin use: without long-term use Qualified Code(s): E11.9 - Type 2 diabetes mellitus without complications (4) Lymphedema of both lower extremities Current Visit: No Status: Chronic (5) Hyperglycemia Current Visit: Yes Status: Chronic (6) Depression Current Visit: Yes Status: Chronic Qualifiers: Depression Type: persistent depressive disorder Qualified Code(s): F34.1 - Dysthymic disorder Brief History of Present Illness: Patient is a new patient to me. She was being admitted to [facility] assisted living facility. The patient was living in [facility]. She was living in [place] and had no health care other than the local ER. She was admitted to the ER for Pneumonia. She was kept for 2 night. Started on Augmentin and then Amoxicillin. The patient was discharged on 06/19. Her POA was getting her into [facility] and the staff called me stating she is too weak to be managed in [facility]. On history and evaluation. She has chronic lower extremity elephantitis. She has been sleeping in a [facility] for years. She also had a glucose of 276 in the [place] ER. The labs were shown to me by her POA. The patient has no history of chf, dm2. She was put on bp meds in the ER. However she most likely was never followed for the last 2 years. The patient walks about 10-15 feet at a time before her hospitalization. She has weakness and sob after words. She moved from [place] 17 years ago with the passing of her . States she wants to pass and be with her . She has a daughter with health issues living next door. Hospital Course: Patient was admitted for chf exacerbation. more chronic. She was diureside with furosemide. Seen by Dr. Hansen. Started on entresto. The patient was very deconditioned. Worked with PT. The patient had an echocardiogram showing HFeFP. She will be discharged on metoprolol, entresto and a short course of furosemide to [facility]. I will follow up with her when she is sent back to [facility] Vital Signs/Physical Exam: Temp Pulse Resp BP Pulse Ox 97.8 F 86 16 123/55 L 96 07/03/24 09:16 07/03/24 09:16 07/03/24 09:16 07/03/24 09:16 07/03/24 09:16 General: Alert, In no apparent distress HEENT: Atraumatic, PERRLA, EOMI Neck: Supple, JVD not distended Respiratory: Clear to auscultation bilaterally, Normal air movement Cardiovascular: Regular rate/rhythm, Normal S1 S2 Gastrointestinal: Normal bowel sounds, No tenderness Musculoskeletal: No tenderness Integumentary: No rashes Neurological: Normal speech, Normal tone, Normal affect Lymphatics: No axilla or inguinal lymphadenopathy Laboratory Data at Discharge: WBC 13.10 thou/uL (4.3-10.9) H 07/01/24 04:20 Hgb 12.5 g/dL (12.0-15.0) 07/01/24 04:20 Hct 38.8 % (36.0-45.0) 07/01/24 04:20 Plt Count 350 thou/uL (152-406) 07/01/24 04:20 Sodium 142 mEq/L (136-145) 07/01/24 04:20 Potassium 4.3 mEq/L (3.5-5.1) D 07/01/24 04:20 BUN 17 mg/dL (7-18) 07/01/24 04:20 Creatinine 0.82 mg/dL (0.55-1.02) 07/01/24 04:20 Glucose 132 mg/dL (74-106) H 07/01/24 04:20 Magnesium 2.0 mg/dL (1.6-2.4) 06/29/24 05:29 Total Bilirubin 0.5 mg/dL (0.2-1.0) 07/01/24 04:20 AST < 10 U/L (15-37) L 07/01/24 04:20 ALT < 14 U/L (13-56) 07/01/24 04:20 Alkaline Phosphatase 74 U/L (45-117) 07/01/24 04:20 Triglycerides 130 mg/dL (<150) 06/29/24 05:29 Cholesterol 138 mg/dL (<200) 06/29/24 05:29 HDL Cholesterol 42 mg/dL (40-60) 06/29/24 05:29 Cholesterol/HDL Ratio 3.29 06/29/24 05:29 Home Medications: Furosemide [Lasix] 40 mg PO DAILY 14 Days #14 tab 07/03/24 Metoprolol Tartrate [Lopressor*] 25 mg PO BID 90 Days #180 tab 07/03/24 Sacubitril/Valsartan [Entresto 24 mg-26 mg Tablet] 1 tab PO BID 90 Days #180 tab 07/03/24 New Medications: Sacubitril/Valsartan [Entresto 24 mg-26 mg Tablet] 1 tab PO BID 90 Days #180 tab Furosemide [Lasix] 40 mg PO DAILY 14 Days #14 tab Metoprolol Tartrate [Lopressor*] 25 mg PO BID 90 Days #180 tab Diet: AHA Activity: Fall precautions Followup: Romie Granado MD [Primary Care Provider] - Physician Review: Patient Assessed, Agree with Above Assessment and Plan Time spent managing pt's care (in minutes): 40
[2024-07-03 12:22] VITALS: O2SAT 96
[2024-07-03 12:47] VITALS: BP 101/47; TEMP 97.6
== END 2024-07-03 15:00 | DRG 291 ==
LOC: 2ND 16:53
PROVIDERS: ADMIT Internal Medicine; ATTEND Internal Medicine
DX: I11.0 Hypertensive heart disease with heart failure (principal); I50.33 Acute on chronic diastolic (congestive) heart failure; I89.0 Lymphedema, not elsewhere classified; F34.1 Dysthymic disorder; B35.1 Tinea unguium; R73.9 Hyperglycemia, unspecified; Z66 Do not resuscitate; Z63.4 Disappearance and death of family member; Z79.899 Other long term (current) drug therapy
CPT/HCPCS: 36415; 71045; 80053; 80061; 82043; 82570; 82947; 83036; 83735; 83880; 84132; 84443; 85025; 87040; 93306; 93925; 93930; 93970; 97116; 97163; 97530; J1650; J1940

== ENCOUNTER 2024-07-08 19:02 | Emergency (ER) | payer OTHER ==
--- OUTSIDE RECORDS SUMMARY | 2024-07-08 19:06 | XMS REPORT | Continuity of Care Document ---
Author Name Unknown Address [address] [facility] [address] [place] [address] [facility] Address [address] [facility] [address] [place] [address] Care Team Providers Care Frame Trimmer Name Role Phone Danielle Fregoso MD Primary Care Physician [phone] DANIELLE FREGOSO Attending Clinician Unavailable Danielle Fregoso MD Attending Clinician [phone] Danielle Fregoso MD Attending Clinician [phone] Yeimi Millan RN Attending Clinician Unava ilable Doctor Unassigned, Arrey Attending Clinician U navailDaniel Carrion DO Attending Clinician [phone] Dre Crespo MD Attending Clinician [phone] Taran NUÑEZ, Zulema Maciel Attending Clinician [phone] James Avila MD Attending Clinician [phone] Wander Spears MD Attending Clinician [phone] Taran NUÑEZ, Zulema Maciel Admitting Clinician [phone] Payers Payer Name Policy Type Policy Number Effective Date Expirati on Date Source [employer] MED[employer]ARE ADV HMO [id number] 2016 00:00:00 Problems Condition Name Condition Details Condition Category Status Onset Date Resolution Date Last Treatment Date Treating Clinician Comments Source Syncope and collapse Syncope and collapse Disease Active 2-10 00:00: 00 General acute hospital Mobility impaired Mobility impaired Disease Active 2018-07 009 00:00: 00 General acute hospital 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 Disease Active 2014-07 00:00: 00 General acute hospital Essential hypertensi on Essential hypertensi on Disease Active 2014-07 00:00: 00 General acute hospital 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 Disease Active 2014-07 00:00: 00 General acute hospital Allergies, Adverse Reactions, Alerts Allergy Name Allergy Type Status Severity Reaction(s) Onset Date Inactive Date Treating Clinician Comments Source AMOXICIL TERRANCE-POT CLAVULAN ATE DRUG Active Unknown-Cmnt 2014-07 00:00: 00 General acute hospital HYDROCOD ONE-GUAI FENESIN DRUG Active Unknown-Cmnt 2014-07 00:00: 00 General acute hospital Amoxicil terrance-Pot Clavulan ate Propensi ty to adverse reaction s Active Unknown - See comments 2014-07 00:00: 00 General acute hospital Hydrocod one-Guai fenesin Propensi ty to adverse reaction s Active Unknown - See comments 2014-07 00:00: 00 General acute hospital Social History Social Habit Start Date Stop Date Quantity Comments Source [facility] to SARS-CoV-2 (event) Not sure [facility] History of Social function 2021-07-14 00:00:00 2021-07-14 00:00:00 [facility] Alcoholic beverage intake 2020-09-03 00:00:00 2020-09-03 00:00:00 Current non-drinker of alcohol (finding) [facility] Alcohol intake 2020-09-03 00:00:00 2020-09-03 00:00:00 Current non-drinker of alcohol (finding) [facility] Sex assigned at 1935 00:00:00 1935 00:00:00 [facility] Smoking Status Start Date Stop Date Source Never smoked tobacco General acute hospital Medications Ordered Medication Name Filled Medication Name Start Date Stop Date Current Medication? Ordering Clinician Indication Dosage Frequency Signature (SIG) Comments Components Source losartan 100 mg tablet 2019-07 00:00: 00 07-14 00:00 :00 No 100mg Take 100 mg by mouth daily. General acute hospital amLODIPine 5 mg tablet 2019-07 00:00: 00 07-14 00:00 :00 No 5mg Take 5 mg by mouth 2 (two) times daily. General acute hospital azelastine 137 mcg (0.1 %) nasal spray 2018-07 00:00: 00 Yes [id number] 1{spray } Use 1 [place] in each nostril 2 (two) times daily. Use in each nostril as directed General acute hospital fluticasone propion-ruth ann meterol (ADVAIR DISKUS) 250-50 mcg/dose inhalation disk 2018-07 00:00: 00 Yes [id number] 1{puff} Inhale 1 Puff every 12 (twelve) hours. General acute hospital fluticasone propion-ruth ann meterol (ADVAIR DISKUS) 250-50 mcg/dose inhalation disk 2018-07 00:00: 00 Yes [id number] 1{puff} Inhale 1 Puff every 12 (twelve) hours. General acute hospital Immunizations Ordered Immunization Name Filled Immunization Name Date Status Comments Source Pneumococcal Polysaccharide, PPSV23 (PNEUMOVAX) 2019-05-01 00:00:00 Completed [facility] Pneumococcal Polysaccharide, PPSV23 (PNEUMOVAX) 2019-05-01 00:00:00 Completed Influenza High Dose 2019-04-19 00:00:00 Completed [facility] Influenza, High-Dose, Trivalent, PF (FLUZONE) 2019-04-19 00:00:00 Completed [facility] Influenza High Dose 2018-04-26 00:00:00 Completed [facility] Influenza, High-Dose, Trivalent, PF (FLUZONE) 2018-04-26 00:00:00 Completed TDAP 2018-03-16 00:00:00 Completed [facility] TDAP 2018-03-16 00:00:00 Completed Influenza High Dose 2017-04-26 00:00:00 Completed [facility] Influenza, High-Dose, Trivalent, PF (FLUZONE) 2017-04-26 00:00:00 Completed [facility] Influenza High Dose 2016-05-30 00:00:00 Completed [facility] Pneumococcal 13 Conjugate, PCV13 (Prevnar 13) 2016-05-30 00:00:00 Completed [facility] Influenza, High-Dose, Trivalent, PF (FLUZONE) 2016-05-30 00:00:00 Completed [facility] Pneumococcal 13 Conjugate, PCV13 (Prevnar 13) 2016-05-30 00:00:00 Completed Vital Signs Vital Name Observation Time Observation Value Comments S gilbert Systolic blood pressure 2021-07-14 18:22:00 137 mm[Hg] [facility] Diastolic blood pressure 2021-07-14 18:22:00 82 mm[Hg] [facility] Heart rate 2021-07-14 18:13:00 109 /min [facility] Body weight 2021-07-14 18:13:00 82.101 kg [facility] BMI 2021-07-14 18:13:00 27.52 kg/m2 [facility] Oxygen saturation in Arterial blood by Pulse oximetry 2021-07-14 18:13:00 95 /min [facility] Encounters Start Date/Time End Date/Time Encounter Type Admission Type Attending Clinicians Care Facility Care Department Encounter ID Source 2021-05-22 22:57:15 Emergency [facility] [id number] General acute hospital 2024-06-28 00:00:00 2024-07-01 10:29:44 Telephone Danielle Fregoso [facility] [id number] General acute hospital 2021-07-14 12:30:00 2021-07-14 12:45:00 Office Visit Fregoso, [facility] [id number] General acute hospital 2021-07-14 12:30:00 2021-07-14 12:30:00 Outpatient DANIELLE BREWER [facility] [id number] General acute hospital 2021-07-14 12:30:00 2021-07-14 12:30:00 Outpatient R DANIELLE FREGOSO [facility] [id number] General acute hospital 2021-07-12 10:40:00 2021-07-12 10:40:00 Outpatient R [facility] [id number] General acute hospital 2021-07-09 00:00:00 2021-07-09 00:00:00 [facility] [id number] General acute hospital 2021-05-19 00:00:00 2021-05-19 00:00:00 Telephone Yeimi Millan [facility] [id number] General acute hospital 2020-09-17 00:00:00 2020-09-17 00:00:00 Orders Only Doctor Unassigned, Arrey [facility] [id number] General acute hospital 2020-09-15 08:25:30 2020-09-15 08:56:22 Office Visit [facility] [id number] General acute hospital 2020-09-15 08:30:00 2020-09-15 08:30:00 Outpatient DANIELLE BREWER [facility] [id number] General acute hospital 2020-09-02 18:20:00 2020-09-04 21:43:00 Hospital Encounter Daniel Conklin, Dre Chirinos, Zulema Avila, James Spears, [facility] [id number] General acute hospital 2020-04-07 07:45:00 2020-04-07 07:45:00 Outpatient DANIELLE BREWER [facility] [id number] General acute hospital 2020-04-07 06:49:01 2020-04-07 07:04:01 Telemedici ne Visit Danielle Fregoso [facility] One ..[id number] General acute hospital
[2024-07-08 19:41] LABS: Absolute Basophils 0.1 K/uL (0-0.5); Absolute Eosinophils 0.2 K/uL (0-0.5); Absolute Lymphocytes (CBC) 0.8 K/uL (0.7-4.9); Absolute Monocytes 0.7 K/uL (0.1-1.3); Basophils % 1.1 % (0-1.3); Eosinophils % 2.5 % (0-4.4); Hematocrit 41.2 % (36.0-45.0); Hemoglobin 13.3 g/dL (12.0-15.0); Lymphocytes % 12.5 % (15.3-44.8); MCHC 32.3 g/dL (32.0-36.0); MCV 83.5 fL (80-100); MPV 7.8 fL (7.6-11.3); Monocytes % 10.4 % (3.3-12.3); Neutrophils % 73.5 % (41.7-73.7); Nucleated Red Blood Cells % 0.1 % (0-0); Platelets 257 thou/uL (152-406); RBC Red Blood Cell Count 4.93 M/uL (3.86-4.86); Red Cell Distribution Width 15.9 % (12.1-15.2)
[2024-07-08 19:55] LABS: Anion Gap 5.6 mEq/L (5.0-15.0); Potassium 3.6 mEq/L (3.5-5.1); Troponin High Sensitivity 104.5 pg/mL (<58.9)
--- NOTE | 2024-07-08 20:20 | RAD REPORT ---
EXAMINATION: ONE VIEW CHEST XR CLINICAL INDICATION: Female, 88 years old.,SOB TECHNIQUE: Frontal chest projection is submitted. Examination is limited by patient positioning and t echnique. COMPARISON: 06/28/2024 FINDINGS: The lungs are diffusely emphysematous but grossly clear. No pneumothorax or sizable effusion althoug h there is stable blunting of the costophrenic angles which may relate to pleural thickening or trace effusions. The heart is normal in size. Mediastinal contours are unremarkable. IMPRESSION: No acute intrathoracic abnormalities. Sequelae of COPD and stable bilateral mild costophrenic angle b lunting as above.
--- NOTE | 2024-07-08 22:13 | RAD REPORT ---
EXAM: CT Chest For Pe Angio TECHNIQUE: CT angiogram of the chest was performed following intravenous contrast administration, inc luding sagittal and coronal as well as maximum intensity projection reformats. One or more of the following dose reduction techniques were used: Automated exposure control, adjustment of the mA and k V according to patient size, and iterative reconstruction. Unless otherwise specified, incidental findings do not require dedicated imaging follow-up. INDICATION: [facility] MAIN Chest painDyspnea Bed Name: 2 Y COMPARISON: Neck ultrasound 12/27/2017. FINDINGS: LINES/TUBES: None. PULMONARY ARTERIES: Prominent caliber of the right and left pulmonary arteries, approximating the asc ending aorta caliber, suggesting pulmonary hypertension. No filling defects within the pulmonary arteries to suggest pulmonary embolus. LUNGS AND AIRWAYS: The lungs and central airways are normal without focal abnormality. PLEURA: Mild right layering pleural effusion. No Pneumothorax. HEART AND MEDIASTINUM: The visualized thyroid gland is normal. No mediastinal, hilar, or axillary lym phadenopathy. Heart is unremarkable. No pericardial effusion. SOFT TISSUES AND BONES: Large mixed cystic and solid right thyroid nodule, measuring 7.2 x 7.1 cm, wi th more prominent cystic components compared to the prior ultrasound. No acute osseous abnormality. No significant soft tissue finding. UPPER ABDOMEN: Calcified splenic hilum 9 mm aneurysm. IMPRESSION: No evidence of acute central pulmonary emboli. Prominent caliber of the right and left pulmonary arteries, may suggest ongoing pulmonary hypertensio n. Large mixed cystic and solid right thyroid nodule measuring up to 7.2 cm, may have increased in size since the prior ultrasound. These correlate with pathology results. Previously sampled, or consider additional evaluation by ultrasound guided FNA. Small layering right pleural effusion..
--- NOTE | 2024-07-08 23:00 | ER ---
Nurse's Notes [facility] Name: Noelle Pickard Age: 88 yrs Sex: Female : 1935 Arrival Date: 07/08/2024 Time: 19:02 Bed 2 Private MD: Diagnosis: Dyspnea-resolved;Chronic diastolic (congestive) heart failure Presentation: 07/08 19:14 Chief complaint: Patient states: I had a brief moments of shortness of breath and my bm8 right hand started going numb. EMS states: pt stated she had a moment of shortness of breath but all symptoms resolved prior to our arrival at [facility]. Coronavirus screen: Vaccine status: Patient reports receiving the 2nd dose of the covid vaccine. Ebola Screen: Patient negative for fever greater than or equal to 101.5 degrees Fahrenheit, and additional compatible Ebola Virus Disease symptoms Patient denies exposure to infectious person. Patient denies travel to an Ebola-affected area in the 21 days before illness onset. No symptoms or risks identified at this time. Initial Sepsis Screen: Does the patient meet any 2 criteria? No. Patient's initial sepsis screen is negative. Does the patient have a suspected source of infection? No. Patient's initial sepsis screen is negative. Risk Assessment: Do you want to hurt yourself or someone else? Patient reports no desire to harm self or others. Onset of symptoms was July 08, 2024 at 18:00. Care prior to arrival: IV initiated. 20 GA, in the right antecubital area. 19:14 Method Of Arrival: EMS: [facility] bm8 19:14 Acuity: POOJA 3 bm8 Triage Assessment: 19:17 General: Appears in no apparent distress. comfortable, Behavior is calm, cooperative, bm8 appropriate for age. Pain: Denies pain. EENT: No deficits noted. No signs and/or symptoms were reported regarding the EENT system. Neuro: No deficits noted. Level of Consciousness is awake, alert, obeys commands, Oriented to person, place, time, situation, Appropriate for age. Cardiovascular: Denies chest pain, Heart tones S1 S2 present Capillary refill < 3 seconds in bilateral fingers Patient's skin is warm and dry. Rhythm is sinus rhythm. Respiratory: Reports shortness of breath Airway is patent Trachea midline Respiratory effort is even, unlabored, Respiratory pattern is regular, symmetrical, Breath sounds are clear bilaterally. Onset: The symptoms/episode began/occurred just prior to arrival, the patient reports symptoms have resolved. GI: No signs and/or symptoms were reported involving the gastrointestinal system. Abdomen is round distended, Bowel sounds present X 4 quads. : No signs and/or symptoms were reported regarding the genitourinary system. Derm: pt has lymphedema by bilaterally. Musculoskeletal: No signs and/or symptoms reported regarding the musculoskeletal system. Historical: - Allergies: 19:17 No Known Allergies; bm8 - Home Meds: 19:17 Unable to obtain [Active]; bm8 - PMHx: 19:17 Hypertensive disorder; Diabetes mellitus; lymphedema; bm8 - PSHx: 19:17 Unable to Obtain; bm8 - Immunization history:: Adult Immunizations up to date. - Infectious Disease History:: Denies. - Social history:: Smoking status: Patient denies any tobacco usage or history of. Patient/guardian denies using alcohol, street drugs. Screenin:18 [facility] ED Fall Risk Assessment (Adult) History of falling in the last 3 months, bm8 including since admission Yes- physiologic fall (2 pts) Confusion or Disorientation No (0 pts) Intoxicated or Sedated No (0 pts) Impaired Gait Yes (1 pt) Mobility Assist Device Used Yes (1 pt) Altered Elimination No (0 pt) Score/Fall Risk Level 3 or more points = High Risk Oriented to surroundings, Maintained a safe environment, Educated pt \T\ family on fall prevention, incl call for assistance when getting out of bed, Assessed \T\ reinforced patient's understanding of fall precautions, Hourly rounding (assess needs \T\ fall precautionary measures) done, Used ambulatory aids as needed (educated on \T\ assisted with), Used gait belt as appropriate Implemented a Fall Risk Plan of Care. Abuse screen: Denies threats or abuse. Nutritional screening: No deficits noted. Tuberculosis screening: No symptoms or risk factors identified. Assessment: 20:18 Reassessment: Patient appears in no apparent distress at this time. No changes from bm8 previously documented assessment. Patient and/or family updated on plan of care and expected duration. Pain level reassessed. Patient is alert, oriented x 3, equal unlabored respirations, skin warm/dry/pink. Patient denies pain at this time. Patient states feeling better. Cardiovascular: No deficits noted. Denies chest pain, Heart tones S1 S2 present Capillary refill < 3 seconds in bilateral fingers Patient's skin is warm and dry. Rhythm is sinus rhythm. 21:49 Reassessment: Patient appears in no apparent distress at this time. No changes from 8 previously documented assessment. Patient and/or family updated on plan of care and expected duration. Pain level reassessed. Patient is alert, oriented x 3, equal unlabored respirations, skin warm/dry/pink. Patient denies pain at this time. Patient states feeling better. 23:06 Reassessment: pt is awaiting transfer back to [facility]. bm8 23:17 Reassessment: gave report to KATIE Cross at [facility]. She stated that she would be [facility] calling for transportation to bring pt home. 23:22 Reassessment: pt is resting with eyes closed breathing is even unlabored while sitting bm8 up in pt's preferred position .symmetrical rise and. Vital Signs: 19:14 BP 134 / 61; Pulse 78; Resp 16; Temp 98.4; Pulse Ox 97% on R/A; Weight 69.85 kg; Height bm8 5 ft. 7 in. ; Pain 0/10; 20:18 BP 116 / 54; Pulse 80; Resp 17; Temp 98.4; Pulse Ox 98% on R/A; Pain 0/10; bm8 21:49 BP 136 / 90; Pulse 105; Resp 17; Temp 98.4; Pulse Ox 98% ; Pain 0/10; bm8 23:22 BP 110 / 57; Pulse 82; Resp 17; Temp 98.4; Pulse Ox 96% on R/A; Pain 0/10; bm8 19:14 Body Mass Index 24.12 (69.85 kg, 170.18 cm) bm8 19:14 Pain Scale: Adult bm8 20:18 Pain Scale: Adult bm8 21:49 Pain Scale: Adult bm8 23:22 Pain Scale: Adult bm8 Alfonso Coma Score: 20:18 Eye Response: spontaneous(4). Motor Response: obeys commands(6). Verbal Response: bm8 oriented(5). Total: 15. 21:49 Eye Response: spontaneous(4). Motor Response: obeys commands(6). Verbal Response: bm8 oriented(5). Total: 15. 23:22 Eye Response: spontaneous(4). Motor Response: obeys commands(6). Verbal Response: bm8 oriented(5). Total: 15. ED Course: 19:07 Patient arrived in ED. rv1 19:13 Maribell Menendez PA-C is PHCP. sb4 19:13 Devon Velasquez MD is Attending Physician. sb4 19:14 Estevan Novoa, RN is Primary Nurse. bm8 19:17 Triage completed. bm8 19:17 Arm band placed on left wrist. bm8 19:22 No provider procedures requiring assistance completed. EKG done, by ED staff, reviewed bm8 by Maribell Menendez PA-C. Initial lab(s) drawn, by me, sent to lab. Maintain EMS IV. Dressing intact. Good blood return noted. Site clean \T\ dry. Gauge \T\ site: 20g RAC. Patient maintains SpO2 saturation greater than 95% on room air. 19:42 XRAY Chest (1 view) In Process Unspecified. EDMS 20:18 Patient has correct armband on for positive identification. Placed in gown. Bed in low bm8 position. Call light in reach. Side rails up X2. Client placed on continuous cardiac and pulse oximetry monitoring. NIBP monitoring applied. quality assurance monitor on. Pulse ox on. NIBP on. Door closed. Noise minimized. Warm blanket given. Pillow given. Verbal reassurance given. Head of bed elevated. 21:23 Chest For Pe Angio In Process Unspecified. EDMS 22:59 Duane Clifton MD is Referral Physician. sb4 23:47 Provided Education on: posst er care. bm8 23:47 IV discontinued, intact, bleeding controlled, No redness/swelling at site. Pressure bm8 dressing applied. Administered Medications: No medications were administered Medication: 20:18 VIS not applicable for this client. bm8 Outcome: 23:00 Discharge ordered by . sb4 23:47 Discharged to fdc. Report called to KATIE Crossmastic sprayer form completed. bm8 23:47 Condition: stable 23:47 Discharge instructions given to patient, fdc, recreation clerk, Instructed on discharge instructions, follow up and referral plans. no drinking with medication, no driving heavy equipment, safety practices, Demonstrated understanding of instructions, follow-up care, medications, 23:48 Patient left the ED. bm8 Signatures: Dispatcher [employer] EDMS Maribell Menendez PA-C PA-C sb4 Niharika Germain rv1 Estevan Novoa, RN RN bm8 Corrections: (The following items were deleted from the chart) 19:18 19:17 PMHx: Unable to Obtain; bm8 bm8
--- NOTE | 2024-07-08 23:00 | EDPHYS ---
Physician Documentation [facility] Name: Noelle Pickard Age: 88 yrs Sex: Female : 1935 Arrival Date: 07/08/2024 Time: 19:02 Bed 2 Private MD: ED Physician Devon Velasquez HPI: 07/08 19:30 This 88 yrs old Female presents to ER via EMS with complaints of Shortness Of Breath. sb4 19:30 patient states that this evening she moved from her bed to her recliner and had a sb4 episode of shortness of breath, states that she began to panic and it worsened, and made her left hand feel numb. she was just hospitalized here for new onset CHF, diuresed extensively, discharged 5 days ago to assisted living on lasix, metoprolol, and entresto. patient has no complaints now, is in no acute distress, speaking in full sentences. Historical: - Allergies: 19:17 No Known Allergies; bm8 - Home Meds: 19:17 Unable to obtain [Active]; bm8 - PMHx: 19:17 Hypertensive disorder; Diabetes mellitus; lymphedema; bm8 - PSHx: 19:17 Unable to Obtain; bm8 - Immunization history:: Adult Immunizations up to date. - Infectious Disease History:: Denies. - Social history:: Smoking status: Patient denies any tobacco usage or history of. Patient/guardian denies using alcohol, street drugs. ROS: 19:30 Constitutional: Negative for fever, chills, and weight loss, sb4 19:30 Respiratory: Positive for shortness of breath, 19:30 All other systems are negative, Exam: 19:30 Constitutional: This is a well developed, well nourished patient who is awake, alert, sb4 and in no acute distress. Head/Face: Normocephalic, atraumatic. Eyes: Extra-ocular motions intact. Periorbital areas with no swelling, redness, or edema. ENT: Mucous membranes moist. Cardiovascular: Regular rate and rhythm with a normal S1 and S2. Respiratory: No increased work of breathing, no retractions or nasal flaring. Abdomen/GI: Soft, non-tender, no distension. Vital Signs: 19:14 BP 134 / 61; Pulse 78; Resp 16; Temp 98.4; Pulse Ox 97% on R/A; Weight 69.85 kg; Height bm8 5 ft. 7 in. ; Pain 0/10; 20:18 BP 116 / 54; Pulse 80; Resp 17; Temp 98.4; Pulse Ox 98% on R/A; Pain 0/10; bm8 21:49 BP 136 / 90; Pulse 105; Resp 17; Temp 98.4; Pulse Ox 98% ; Pain 0/10; bm8 23:22 BP 110 / 57; Pulse 82; Resp 17; Temp 98.4; Pulse Ox 96% on R/A; Pain 0/10; bm8 19:14 Body Mass Index 24.12 (69.85 kg, 170.18 cm) bm8 19:14 Pain Scale: Adult bm8 20:18 Pain Scale: Adult bm8 21:49 Pain Scale: Adult bm8 23:22 Pain Scale: Adult bm8 Alfonso Coma Score: 20:18 Eye Response: spontaneous(4). Motor Response: obeys commands(6). Verbal Response: bm8 oriented(5). Total: 15. 21:49 Eye Response: spontaneous(4). Motor Response: obeys commands(6). Verbal Response: bm8 oriented(5). Total: 15. 23:22 Eye Response: spontaneous(4). Motor Response: obeys commands(6). Verbal Response: bm8 oriented(5). Total: 15. MDM: 19:13 Medical Screening Exam initiated sb4 23:33 Data reviewed: vital signs, nurses notes, EMS record, [facility] records, lab test sb4 result(s), EKG, radiologic studies, I have discussed the patient's presentation/case with the attending Emergency Department Physician; and as a result, I will discharge patient. Consideration of Admission/Observation Escalation of care including admission/observation considered. Management of patient was discussed with the following: Clinical Programmer: Dr. Hansen, cardiology- states that if patient does not have chest pain and is stable, she can follow up with music autographer outpatient. She was just admitted for several days for a new onset of heart failure, had echo done. 07/08 19:21 Order name: Basic Metabolic Panel; Complete Time: 20:10 sb4 07/08 19:21 Order name: CBC with Diff; Complete Time: 19:49 sb4 12/16 19:21 Order name: NT PRO-BNP; Complete Time: 20:10 sb4 07/08 19:21 Order name: Troponin HS; Complete Time: 20:10 sb4 07/08 22:11 Order name: Troponin High Sensitivity; Complete Time: 22:56 bm8 07/08 19:21 Order name: XRAY Chest (1 view); Complete Time: 20:22 sb4 07/08 21:02 Order name: Chest For Pe Angio; Complete Time: 22:17 EDMS 07/08 19:21 Order name: Cardiac monitoring; Complete Time: 19:22 sb4 07/08 19:21 Order name: EKG - Nurse/Tech; Complete Time: 19:22 sb4 07/08 19:21 Order name: IV Saline Lock; Complete Time: 19:22 sb4 07/08 19:21 Order name: Labs collected and sent; Complete Time: 19:22 sb4 07/08 19:21 Order name: O2 Per Protocol; Complete Time: 19:22 sb4 07/08 19:21 Order name: O2 Sat Monitoring; Complete Time: 19:22 sb4 EC:23 Rate is 77 beats/min. Rhythm is regular, Normal Sinus Rhythm. IA interval is normal at sb4 158 msec. QRS interval is normal at 82 msec. QT interval is normal at 388 msec. No Q waves. T waves are Normal. No ST changes noted. Clinical impression: No evidence of ischemia. Interpreted by me. Reviewed by me. Administered Medications: No medications were administered Disposition Summary: 07/08/24 23:00 Discharge Ordered Notes: Location: Home sb4 Problem: new sb4 Symptoms: have improved sb4 Condition: Stable sb4 Diagnosis - Dyspnea - resolved sb4 - Chronic diastolic (congestive) heart failure sb4 Followup: sb4 - With: Duane Clifton MD - When: 2 - 3 days - Reason: Recheck today's complaints, Re-evaluation by your physician Discharge Instructions: - Discharge Summary Sheet sb4 - Heart Failure, Self-Care, [id number] sb4 Forms: - Patient Portal Instructions sb4 - Leadership Thank You Letter sb4 - SBAR form bm8 Signatures: Dispatcher [employer] Maribell Duckworth PA-C PA-C sb4 Estevan Novoa, RN RN bm8 Corrections: (The following items were deleted from the chart) 19:18 19:17 PMHx: Unable to Obtain; bm8 bm8 19:22 19:22 Chest Single View+RAD.RAD.BRZ ordered. EDMS EDMS 19:32 19:30 patient states that this evening she moved from her bed to her recliner and had a sb4 episode of shortness of breath, states that she began to panic and it worsened, and made her left hand feel numb. she was just hospitalized here for new onset CHF, diuresed extensively, discharged 5 days ago to assisted living on lasix, metoprolol, and entresto. sb4 21:02 20:19 Chest Angio+CT.RAD.BRZ ordered. EDMS EDMS
[2024-07-08 23:59] VITALS: TEMP 98.4
[2024-07-09 00:18] VITALS: BP 110/57; O2SAT 96
--- NOTE | 2024-07-09 11:57 | EKG ---
Test Date: 2024-07-08 Test Time: 19:10:39 Electric Wheelchair Repairer: JAYLEN MEASUREMENT RESULTS: Intervals: Rate: 77 [place]: 158 QRSD: 82 QT: 388 QTc: 439 [place]: P: 66 [place]: 158 QRS: -27 T: 73 INTERPRETIVE STATEMENTS: Normal sinus rhythm Normal ECG No previous ECG available for comparison Electronically Signed On 07-09-24 11:55:47 [employer]PER[employer] by Clark Hansen
== END 2024-07-08 23:48 | disposition home or self-care (01) ==
LOC: ER 19:02
DX: I50.32 Chronic diastolic (congestive) heart failure (principal); I10 Essential (primary) hypertension; E11.9 Type 2 diabetes mellitus without complications
CPT/HCPCS: 93005; 85025; 80048; 36415; 84484 ×2; 83880; 71275; 71045; 99284; Q9967

== ENCOUNTER 2024-08-30 13:32 | Emergency (ER) | payer OTHER ==
--- OUTSIDE RECORDS SUMMARY | 2024-08-30 13:35 | XMS REPORT | Continuity of Care Document ---
Author Name Unknown Address [address] [facility] [address] [place] [address] [facility] Address [address] [facility] [address] [place] [address] Care Team Providers Care Benzene Washer Name Role Phone Danielle Fregoso MD Primary Care Physician [phone] DANIELLE FREGOSO Attending Clinician Unavailable Danielle Fregoso MD Attending Clinician [phone] Danielle Fregoso MD Attending Clinician [phone] Yeimi Millan RN Attending Clinician Unava ilable Doctor Unassigned, [place] Attending Clinician U navailDaniel Carrion DO Attending Clinician [phone] Dre Crespo MD Attending Clinician [phone] Taran NUÑEZ, Zulema Maciel Attending Clinician [phone] James Avila MD Attending Clinician [phone] Wander Spears MD Attending Clinician [phone] Taran NUÑEZ, Zulema Maciel Admitting Clinician [phone] Payers Payer Name Policy Type Policy Number Effective Date Expirati on Date Source [employer] MEDICARE ADV HMO [id number] 2016 00:00:00 Problems Condition Name Condition Details Condition Category Status Onset Date Resolution Date Last Treatment Date Treating Clinician Comments Source Syncope and collapse Syncope and collapse Disease Active 2-10 00:00: 00 [facility] Mobility impaired Mobility impaired Disease Active 2018-07 009 00:00: 00 [facility] 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 Disease Active 2014-07 00:00: 00 [facility] Essential hypertensi on Essential hypertensi on Disease Active 2014-07 00:00: 00 [facility] 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 Disease Active 2014-07 00:00: 00 [facility] Allergies, Adverse Reactions, Alerts Allergy Name Allergy Type Status Severity Reaction(s) Onset Date Inactive Date Treating Clinician Comments Source AMOXICIL TERRANCE-POT CLAVULAN ATE DRUG Active Unknown-Cmnt 2014-07 00:00: 00 [facility] HYDROCOD ONE-GUAI FENESIN DRUG Active Unknown-Cmnt 2014-07 00:00: 00 [facility] Amoxicil terrance-Pot Clavulan ate Propensi ty to adverse reaction s Active Unknown - See comments 2014-07 00:00: 00 [facility] Hydrocod one-Guai fenesin Propensi ty to adverse reaction s Active Unknown - See comments 2014-07 00:00: 00 [facility] Social History Social Habit Start Date Stop Date Quantity Comments Source [facility] to SARS-CoV-2 (event) Not sure [facility] History of Social function 2021-07-14 00:00:00 2021-07-14 00:00:00 [facility] Alcoholic beverage intake 2020-09-03 00:00:00 2020-09-03 00:00:00 Current non-drinker of alcohol (finding) [facility] Alcohol intake 2020-09-03 00:00:00 2020-09-03 00:00:00 Current non-drinker of alcohol (finding) [facility] Sex assigned at 1935 00:00:00 1935 00:00:00 [facility] Smoking Status Start Date Stop Date Source Never smoked tobacco [facility] Medications Ordered Medication Name Filled Medication Name Start Date Stop Date Current Medication? Ordering Clinician Indication Dosage Frequency Signature (SIG) Comments Components Source losartan 100 mg tablet 2019-07 00:00: 00 07-14 00:00 :00 No 100mg Take 100 mg by mouth daily. [facility] amLODIPine 5 mg tablet 2019-07 00:00: 00 07-14 00:00 :00 No 5mg Take 5 mg by mouth 2 (two) times daily. [facility] azelastine 137 mcg (0.1 %) nasal spray 2018-07 00:00: 00 Yes [id number] 1{spray } Use 1 [place] in each nostril 2 (two) times daily. Use in each nostril as directed [facility] fluticasone propion-ruth ann meterol (ADVAIR DISKUS) 250-50 mcg/dose inhalation disk 2018-07 00:00: 00 Yes [id number] 1{puff} Inhale 1 Puff every 12 (twelve) hours. [facility] fluticasone propion-ruth ann meterol (ADVAIR DISKUS) 250-50 mcg/dose inhalation disk 2018-07 00:00: 00 Yes [id number] 1{puff} Inhale 1 Puff every 12 (twelve) hours. [facility] Immunizations Ordered Immunization Name Filled Immunization Name Date Status Comments Source Pneumococcal Polysaccharide, PPSV23 (PNEUMOVAX) 2019-05-01 00:00:00 Completed [facility] Pneumococcal Polysaccharide, PPSV23 (PNEUMOVAX) 2019-05-01 00:00:00 Completed Influenza High Dose 2019-04-19 00:00:00 Completed [facility] Influenza, High-Dose, Trivalent, PF (FLUZONE) 2019-04-19 00:00:00 Completed [facility] Influenza High Dose 2018-04-26 00:00:00 Completed [facility] Influenza, High-Dose, Trivalent, PF (FLUZONE) 2018-04-26 00:00:00 Completed TDAP 2018-03-16 00:00:00 Completed [facility] TDAP 2018-03-16 00:00:00 Completed Influenza High Dose 2017-04-26 00:00:00 Completed [facility] Influenza, High-Dose, Trivalent, PF (FLUZONE) 2017-04-26 00:00:00 Completed [facility] Influenza High Dose 2016-05-30 00:00:00 Completed [facility] Pneumococcal 13 Conjugate, PCV13 (Prevnar 13) 2016-05-30 00:00:00 Completed [facility] Influenza, High-Dose, Trivalent, PF (FLUZONE) 2016-05-30 00:00:00 Completed [facility] Pneumococcal 13 Conjugate, PCV13 (Prevnar 13) 2016-05-30 00:00:00 Completed Vital Signs Vital Name Observation Time Observation Value Comments S gilbert Systolic blood pressure 2021-07-14 18:22:00 137 mm[Hg] [facility] Diastolic blood pressure 2021-07-14 18:22:00 82 mm[Hg] [facility] Heart rate 2021-07-14 18:13:00 109 /min [facility] Body weight 2021-07-14 18:13:00 82.101 kg [facility] BMI 2021-07-14 18:13:00 27.52 kg/m2 [facility] Oxygen saturation in Arterial blood by Pulse oximetry 2021-07-14 18:13:00 95 /min [facility] Encounters Start Date/Time End Date/Time Encounter Type Admission Type Attending Clinicians Care Facility Care Department Encounter ID Source 2021-05-22 22:57:15 Emergency [facility] [id number] [facility] 2024-06-28 00:00:00 2024-07-01 10:29:44 Telephone Danielle Fregoso [facility] [id number] [facility] 2021-07-14 12:30:00 2021-07-14 12:45:00 Office Visit Fregoso, [facility] [id number] [facility] 2021-07-14 12:30:00 2021-07-14 12:30:00 Outpatient DANIELLE BREWER [facility] [id number] [facility] 2021-07-14 12:30:00 2021-07-14 12:30:00 Outpatient R DANIELLE FREGOSO [facility] [id number] [facility] 2021-07-12 10:40:00 2021-07-12 10:40:00 Outpatient R [facility] [id number] [facility] 2021-07-09 00:00:00 2021-07-09 00:00:00 [facility] [id number] [facility] 2021-05-19 00:00:00 2021-05-19 00:00:00 Telephone Yeimi Millan [facility] [id number] [facility] 2020-09-17 00:00:00 2020-09-17 00:00:00 Orders Only Doctor Unassigned, [place] [facility] [id number] [facility] 2020-09-15 08:25:30 2020-09-15 08:56:22 Office Visit Antonino [facility] [id number] [facility] 2020-09-15 08:30:00 2020-09-15 08:30:00 Outpatient DANIELLE BREWER [facility] [id number] [facility] 2020-09-02 18:20:00 2020-09-04 21:43:00 Hospital Encounter Daniel Conklin, Dre Chirinos, Zulema Avila, James Spears, [facility] [id number] [facility] 2020-04-07 07:45:00 2020-04-07 07:45:00 Outpatient DANIELLE BREWER [facility] [id number] [facility] 2020-04-07 06:49:01 2020-04-07 07:04:01 Telemedici ne Visit Danielle Fregoso [facility] One ..[id number] [facility]
[2024-08-30] MEDS ORDERED: CEFTRIAXONE 1000 MG/VIAL ONE (14:11)
[2024-08-30 14:37] LABS: SARS-CoV-2 Antigen CONTROL BLUE LINE VIS/BG OK; SARS-CoV-2 Antigen Rapid Res Negative (Negative)
[2024-08-30 14:46] LABS: Absolute Eosinophils 0.2 K/uL (0-0.5); Absolute Monocytes 1.2 K/uL (0.1-1.3); Absolute Neutrophil 8.9 K/uL (1.8-8.0); Basophils % 0.3 % (0-1.3); Eosinophils % 2.1 % (0-4.4); Hematocrit 40.7 % (36.0-45.0); Hemoglobin 13.4 g/dL (12.0-15.0); Lymphocytes % 8.9 % (15.3-44.8); MCH 27.1 pg (27.0-35.0); MPV 8.1 fL (7.6-11.3); Monocytes % 10.5 % (3.3-12.3); Neutrophils % 78.2 % (41.7-73.7); Platelets 492 thou/uL (152-406); RBC Red Blood Cell Count 4.96 M/uL (3.86-4.86); Red Cell Distribution Width 16.7 % (12.1-15.2)
--- NOTE | 2024-08-30 14:59 | RAD REPORT ---
Procedure: Chest Single View HISTORY: Cough COMPARISON: 2023 FINDINGS: The lungs appear clear of acute infiltrate. No significant pleural effusion noted. The heart is mildly enlarged. IMPRESSION: No acute abnormality is displayed.
[2024-08-30 15:08] LABS: Troponin High Sensitivity 106.8 pg/mL (<58.9)
[2024-08-30] MEDS ORDERED: POTASSIUM CL SA 10 MEQ TAB PO ONE (15:59)
--- NOTE | 2024-08-30 17:30 | ER ---
Nurse's Notes [facility] Name: Noelle Pickard Age: 89 yrs Sex: Female : 1935 Arrival Date: 08/30/2024 Time: 13:32 Bed 8 Private MD: Diagnosis: Viral infection, unspecified Presentation: 08/30 13:45 Chief complaint: EMS states: Toned out to [facility] for BP 40s/30s, nausea, hb dizziness, and cough x 2 days. BP 123/79, HR 80s, NSR on 12 lead, FSBS 139, T 98. NS infusing to 20g LAC, Zofran 4 mg IVP administered HITCH TECHNICIAN. Coronavirus screen: Client presents with at least one sign or symptom that may indicate coronavirus-19. Provider contacted for isolation considerations. Ebola Screen: No symptoms or risks identified at this time. Initial Sepsis Screen: Does the patient meet any 2 criteria? No. Patient's initial sepsis screen is negative. Does the patient have a suspected source of infection? No. Patient's initial sepsis screen is negative. Risk Assessment: Do you want to hurt yourself or someone else? Patient reports no desire to harm self or others. Onset of symptoms was August 30, 2024. 13:45 Method Of Arrival: EMS: [facility] 13:45 Acuity: POOJA 3 hb Triage Assessment: 13:45 General: Appears in no apparent distress. Behavior is calm, cooperative. Pain: Denies hb pain. EENT: No signs and/or symptoms were reported regarding the EENT system. Neuro: Level of Consciousness is awake, alert, obeys commands, Oriented to person, place, time, situation. Cardiovascular: Patient's skin is warm and dry. Respiratory: Reports cough that is productive, Respiratory effort is even, unlabored, Respiratory pattern is regular, symmetrical. GI: Reports nausea. : No signs and/or symptoms were reported regarding the genitourinary system. Derm: Skin is pink, warm \T\ dry. Musculoskeletal: Reports generalized weakness. Historical: - Allergies: 13:47 No Known Allergies; hb - PMHx: 13:47 diabetes mellitus; Hypertensive disorder; lymphedema; hb - Immunization history:: Adult Immunizations up to date. - Infectious Disease History:: Denies. - Social history:: Smoking status: Patient denies any tobacco usage or history of. Screenin:04 [facility] ED Fall Risk Assessment (Adult) History of falling in the last 3 months, hb including since admission No falls in past 3 months (0 pts) Confusion or Disorientation No (0 pts) Intoxicated or Sedated No (0 pts) Impaired Gait Yes (1 pt) Mobility Assist Device Used Yes (1 pt) Altered Elimination Yes (1 pt) Score/Fall Risk Level 3 or more points = High Risk Oriented to surroundings, Maintained a safe environment, Educated pt \T\ family on fall prevention, incl call for assistance when getting out of bed. Abuse screen: Denies threats or abuse. Denies injuries from another. Nutritional screening: No deficits noted. Tuberculosis screening: No symptoms or risk factors identified. Assessment: 14:04 General: See triage assessment . hb 16:06 Reassessment: Patient appears in no apparent distress at this time. Patient and/or hb family updated on plan of care and expected duration. Pain level reassessed. Patient is alert, oriented x 3, equal unlabored respirations, skin warm/dry/pink. 17:30 Reassessment: Patient appears in no apparent distress at this time. Patient and/or ap3 family updated on plan of care and expected duration. Pain level reassessed. Patient is alert, oriented x 3, equal unlabored respirations, skin warm/dry/pink. 17:49 Reassessment: Report given to Edelmira Myles at [facility] [phone]. ap3 Vital Signs: 13:45 BP 111 / 65; Pulse 98; Resp 20; Temp 98.1; Pulse Ox 98% on R/A; Weight 69.85 kg; Height hb 5 ft. 7 in. ; Pain 0/10; 15:32 BP 103 / 83; Pulse 93; ec2 16:07 BP 98 / 53; Pulse 107; Resp 15; Pulse Ox 98% on R/A; hb 17:20 BP 106 / 64; Pulse 93; ec2 17:50 BP 122 / 70; Pulse 90; Resp 20; Pulse Ox 98% on R/A; ap3 13:45 Body Mass Index 24.12 (69.85 kg, 170.18 cm) hb 13:45 Pain Scale: Adult hb ED Course: 13:34 Patient arrived in ED. eb 13:34 Kashif Holman MD is Attending Physician. ec2 13:47 Triage completed. hb 14:02 Arm band placed on. hb 14:04 Patient has correct armband on for positive identification. Bed in low position. Call hb light in reach. Provided Education on: use of call light, tests, result time. Client placed on continuous cardiac and pulse oximetry monitoring. NIBP monitoring applied. cardiac monitor on. Pulse ox on. NIBP on. 14:04 Maintain EMS IV. Dressing intact. Good blood return noted. Site clean \T\ dry. Gauge \T\ hb site: 20g LAC. 14:08 Kristine Moser, RN is Primary Nurse. hb 14:10 EKG done, by ED staff, reviewed by Kashif Holman MD. em1 14:37 XRAY Chest (1 view) In Process Unspecified. EDMS 15:58 Troponin High Sensitivity Sent. jl7 16:08 Troponin High Sensitivity Sent. hb 18:34 No provider procedures requiring assistance completed. IV discontinued, intact, ap3 bleeding controlled, No redness/swelling at site. Pressure dressing applied. Administered Medications: 15:09 Drug: Rocephin IV 1 grams IV at calculated rate once; Given slow IV push per pharmacy iw instructions Route: IV; Rate: calculated rate; Site: left antecubital; 18:34 Follow up: IV Status: Completed infusion ap3 16:08 Drug: Potassium Chloride PO 40 mEq PO once Route: PO; hb 18:34 Follow up: Response: No adverse reaction ap3 Medication: 14:04 VIS not applicable for this client. hb Outcome: 17:29 Discharge ordered by MD. ec2 18:34 Discharged to long-term. ap3 18:34 Condition: good 18:34 Discharge instructions given to meter attendant, Instructed on discharge instructions, follow up and referral plans. medication usage, Demonstrated understanding of instructions, follow-up care, medications, 18:35 Patient left the ED. ap3 Signatures: Dispatcher [employer] EDMS Alyson Boykin RN RN iw Martinez, Eric em1 Kristine Moser RN RN hb Leal, Jahala, RN RN jl7 Ranjana Garcia RN RN ap3 Chelita Hill Edwin, MD MD ec2 Corrections: (The following items were deleted from the chart) 14:04 13:45 BP 111 / 65; Pulse 98bpm; Resp 20bpm; Pulse Ox 98% RA; Temp 98.1F; Pain 0/10, hb Adult; hb
--- NOTE | 2024-08-30 17:30 | EDPHYS ---
Physician Documentation [facility] Name: Noelle Pickard Age: 89 yrs Sex: Female : 1935 Arrival Date: 08/30/2024 Time: 13:32 Bed 8 Private MD: ED Physician Kashif Holman HPI: 08/30 14:12 This 89 yrs old Female presents to ER via EMS with complaints of Blood ec2 Pressure Problem. 14:12 Patient arrives today due to concern for productive sputum. Initially EMS was called ec2 due to concern for hypertensive blood pressures, was normotensive for EMS. Patient been having cough and congestion as well as anosmia. No fevers, no vomiting. Does complain of some nausea. Historical: - Allergies: 13:47 No Known Allergies; hb - PMHx: 13:47 diabetes mellitus; Hypertensive disorder; lymphedema; hb - Immunization history:: Adult Immunizations up to date. - Infectious Disease History:: Denies. - Social history:: Smoking status: Patient denies any tobacco usage or history of. ROS: 14:12 Constitutional: as per hpi ec2 Exam: 14:12 Constitutional: GEN: NAD Head: atraumatic Eyes: EOMI Ears: External ears are ec2 normal. CV: regular rate LUNGS: no respiratory distress ABD: non-distended SKIN: no evidence of rashes MSK: no evidence of trauma Vital Signs: 13:45 BP 111 / 65; Pulse 98; Resp 20; Temp 98.1; Pulse Ox 98% on R/A; Weight 69.85 kg; Height hb 5 ft. 7 in. ; Pain 0/10; 15:32 BP 103 / 83; Pulse 93; ec2 16:07 BP 98 / 53; Pulse 107; Resp 15; Pulse Ox 98% on R/A; hb 17:20 BP 106 / 64; Pulse 93; ec2 17:50 BP 122 / 70; Pulse 90; Resp 20; Pulse Ox 98% on R/A; ap3 13:45 Body Mass Index 24.12 (69.85 kg, 170.18 cm) hb 13:45 Pain Scale: Adult hb MDM: 13:34 Medical Screening Exam initiated ec2 14:12 Data reviewed: vital signs, nurses notes. ED course: Patient arrives today for cough ec2 and cold symptoms. Examination is revealing for normotensive individual was otherwise in no acute distress. Will obtain lab work, viral swabs, chest x-ray. ddx considered includes viral infection, pna, volume overload. 14:13 ED course: EKG independently reviewed and interpreted by me, shows normal sinus rhythm, ec2 rate of 84, no acute ST segment elevations, intervals are nonactionable.. 15:30 ED course: Patient with troponin at 107, when compared to external records, patient ec2 recently had a troponin at level of 90 and low 100s, similar. Will obtain repeat troponin here as well. Labs otherwise pertinent for slight hypokalemia 3, will give the patient PO potassium.. 17:28 ED course: Repeat troponin is static. I suspect patient has a viral infection. Will ec2 discharge home have patient follow-up with PCP. Return precautions given.. 08/30 13:36 Order name: Basic Metabolic Panel; Complete Time: 15:16 ec2 08/30 13:36 Order name: CBC with Diff; Complete Time: 15:02 ec2 08/30 13:36 Order name: NT PRO-BNP; Complete Time: 15:16 ec2 08/30 13:36 Order name: Troponin HS; Complete Time: 15:16 ec2 08/30 13:36 Order name: Blood Culture Adult (2) ec2 08/30 14:05 Order name: Influenza Screen (a \T\ B); Complete Time: 15:02 ec2 08/30 14:05 Order name: SARS RAPID; Complete Time: 15:02 ec2 08/30 14:05 Order name: Lactate w/ 2H reflex if indic.; Complete Time: 15:30 ec2 08/30 15:31 Order name: Troponin High Sensitivity; Complete Time: 17:20 ec2 08/30 13:36 Order name: XRAY Chest (1 view); Complete Time: 15:02 ec2 08/30 13:36 Order name: Cardiac monitoring; Complete Time: 14:08 ec2 08/30 13:36 Order name: EKG - Nurse/Tech; Complete Time: 14:10 ec2 08/30 13:36 Order name: IV Saline Lock; Complete Time: 15:09 ec2 08/30 13:36 Order name: Labs collected and sent; Complete Time: 15:09 ec2 08/30 13:36 Order name: O2 Per Protocol; Complete Time: 14:08 ec2 08/30 13:36 Order name: O2 Sat Monitoring; Complete Time: 14:08 ec2 Administered Medications: 15:09 Drug: Rocephin IV 1 grams IV at calculated rate once; Given slow IV push per pharmacy iw instructions Route: IV; Rate: calculated rate; Site: left antecubital; 18:34 Follow up: IV Status: Completed infusion ap3 16:08 Drug: Potassium Chloride PO 40 mEq PO once Route: PO; hb 18:34 Follow up: Response: No adverse reaction ap3 Disposition Summary: 08/30/24 17:29 Discharge Ordered Notes: Location: Home ec2 Condition: Stable ec2 Diagnosis - Viral infection, unspecified ec2 Followup: ec2 - With: Private Physician - When: - Reason: Re-evaluation by your physician Discharge Instructions: - Discharge Summary Sheet ec2 - Viral Illness, Adult ec2 Forms: - Medication Reconciliation Form ec2 - Antibiotic Education ec2 - Prescription Opioid Use ec2 - Patient Portal Instructions ec2 - Leadership Thank You Letter ec2 Prescriptions: - Tessalon Perles 100 mg Oral Capsule - take 1 capsule ORAL route every 8 hours As needed; 15 capsule; Refills: 0, ec2 Product Selection Permitted Signatures: Dispatcher [employer] Alyson Rich RN RN Kristine Moser RN RN Kashif Holman MD MD ec2 Ranjana Garcia RN ap3 Corrections: (The following items were deleted from the chart) 13:36 13:36 BASIC METABOLIC PANEL+C.LAB.BRZ ordered. EDMS EDMS 13:36 13:36 CBC+H.LAB.BRZ ordered. EDMS EDMS 13:36 13:36 PROBNP+C.LAB.BRZ ordered. EDMS EDMS 13:36 13:36 Troponin High Sensitivity+C.LAB.BRZ ordered. EDMS EDMS 13:36 13:36 BLOOD CULTURE*+BA.LAB.BRZ ordered. EDMS EDMS 13:37 13:36 Chest Single View+RAD.RAD.BRZ ordered. EDMS EDMS
[2024-08-30 18:57] VITALS: TEMP 98.1; O2SAT 98
[2024-08-30 19:02] VITALS: BP 122/70
== END 2024-08-30 18:35 | disposition home or self-care (01) ==
LOC: ER 13:32
DX: B34.9 Viral infection, unspecified (principal); I10 Essential (primary) hypertension; Z11.52 Encounter for screening for COVID-19
CPT/HCPCS: 96365; 87040 ×2; 85025; 80048; 36415; 83605; 84484 ×2; 83880; 87804 ×2; 71045; 99285; 96366; 87811; J0696; 93005